=== PATIENT | male | born 1985 | race Caucasian/White ===

== ENCOUNTER 2021-04-29 20:26 | Emergency (ER) | payer OTHER ==
[2021-04-29 20:32] VITALS: BP 139/78; PULSE 89; TEMP 98.4; BMI 31.9
[2021-04-29] MEDS ORDERED: CLINDAMYCIN 600MG PREMIX IVPB 600 MG/50 ML BAG IVPB ONE ×2 (21:14→21:27)
[2021-04-29] MEDS ORDERED: KETOROLAC TROMETHAMINE 30 MG/1 ML VIAL IVPUSH ONE (21:14)
[2021-04-29] MEDS ORDERED: KETOROLAC TROMETHAMINE 30 MG/1 ML VIAL ONE (21:26)
== END 2021-04-29 22:28 | disposition home or self-care (01) ==
LOC: JERFT 20:26
PROC: 3E03329 Introduction of Other Anti-infective into Peripheral Vein, Percutaneous Approach (ICD-10-PCS; principal; 2021-04-29)
PROC: 3E0337Z Introduction of Electrolytic and Water Balance Substance into Peripheral Vein, Percutaneous Approach (ICD-10-PCS; 2021-04-29)
DX: S60.511A Abrasion of right hand, initial encounter (principal); L03.113 Cellulitis of right upper limb; W26.8XXA Contact with other sharp object(s), not elsewhere classified, initial encounter
CPT/HCPCS: 73130-TC-RT-FY; 99284-25

== ENCOUNTER 2021-06-14 21:10 | Emergency (ER) | payer OTHER ==
[2021-06-14 21:21] VITALS: BP 139/89; PULSE 92; TEMP 97.9; BMI 30.7
== END 2021-06-14 22:15 | disposition home or self-care (01) ==
LOC: JER 21:10
DX: J06.9 Acute upper respiratory infection, unspecified (principal); Z20.822 Contact with and (suspected) exposure to COVID-19
CPT/HCPCS: 71046-TC-FY; 99283-25

== ENCOUNTER 2021-11-30 18:00 | Emergency (ER) | payer OTHER ==
[2021-11-30 18:07] VITALS: BP 122/67; PULSE 102; TEMP 97; BMI 27.9
[2021-11-30] MEDS ORDERED: DEXAMETHASONE LIQUID 0.5 MG/5 ML PO ONE (18:51)
[2021-11-30] MEDS ORDERED: MAGNESIUM CITRATE 300 ML BOTTLE PO ONE (18:51)
[2021-11-30 19:11] LABS: BASO % 0.4 % (0-2.0); EOS % 9.9 % (0-4.5); HEMATOCRIT 50.6 % (35.4-49); HEMOGLOBIN 17.7 GM/dL (11.7-16.9); LYMPH % 37.2 % (8-40); MCH 33.7 pg (25.7-33.7); MEAN CELL VOLUME 96.4 fl (80-96); MEAN PLT VOLUME 7.2 fl (7.5-11.1); NEUT % 36.5 % (42.8-82.8); PLATELET COUNT 189 10^3/uL (134-434); RBC 5.25 M/mm3 (4.00-5.60); RDW 13.4 % (11.9-15.9); WHITE BLOOD COUNT 3.7 K/mm3 (4.0-10.0)
[2021-11-30] MEDS: ALBUTEROL SO4 2.5/IPRATROPIUM 0.5 INH SOL 3 ML VIAL.NEB. NEB SCH ×3 (19:30→20:05)
[2021-11-30 19:34] LABS: CALCIUM 8.8 mg/dL (8.5-10.1)
[2021-11-30 19:35] LABS: ALBUMIN 4.1 g/dl (3.4-5.0); BLOOD UREA NITROGEN 5.1 mg/dL (7-18)
[2021-11-30 19:38] LABS: CREATININE 0.9 mg/dL (0.55-1.3)
[2021-11-30 19:39] LABS: BILIRUBIN,TOTAL 0.5 mg/dL (0.2-1); TOT PROT 7.9 g/dl (6.4-8.2)
[2021-11-30] MEDS ORDERED: ALBUTEROL SO4 2.5/IPRATROPIUM 0.5 INH SOL 3 ML VIAL.NEB. NEB ONE (19:45)
[2021-11-30] MEDS ORDERED: MAGNESIUM CITRATE 300 ML BOTTLE ONE (19:45)
[2021-11-30] MEDS ORDERED: DEXAMETHASONE SOD PHOSPHATE 10 MG/1 ML VIAL ONE (19:45)
[2021-11-30] MEDS ORDERED: DEXAMETHASONE SOD PHOSPHATE 10 MG/1 ML VIAL IVPUSH ONE (20:43)
== END 2021-11-30 20:27 | disposition left against medical advice (07) ==
LOC: JER 18:00
PROC: 3E0F7GC Introduction of Other Therapeutic Substance into Respiratory Tract, Via Natural or Artificial Opening (ICD-10-PCS; principal; 2021-11-30)
PROC: 3E033GC Introduction of Other Therapeutic Substance into Peripheral Vein, Percutaneous Approach (ICD-10-PCS; 2021-11-30)
DX: J45.41 Moderate persistent asthma with (acute) exacerbation (principal); R74.01 Elevation of levels of liver transaminase levels
CPT/HCPCS: 36415; 71046-TC-FY; 74019-TC-FY; 80053; 83690; 85025; 99285-25

== ENCOUNTER 2021-12-01 10:10 | Emergency (ER) | payer OTHER ==
[2021-12-01] MEDS ORDERED: SODIUM CHLORIDE 0.9% 500 ML INFUS.BAG IV ONE (10:19)
[2021-12-01 10:34] VITALS: TEMP 97.4; BMI 27.3
[2021-12-01] MEDS ORDERED: DEXAMETHASONE SOD PHOSPHATE 10 MG/1 ML VIAL IVPUSH ONE (11:15)
[2021-12-01] MEDS ORDERED: ALBUTEROL SO4 2.5/IPRATROPIUM 0.5 INH SOL 3 ML VIAL.NEB. NEB SCH (11:15)
[2021-12-01] MEDS ORDERED: MAGNESIUM CITRATE 300 ML BOTTLE PO ONE (11:15)
[2021-12-01] MEDS ORDERED: DEXAMETHASONE SOD PHOSPHATE 10 MG/1 ML VIAL ONE (11:51)
[2021-12-01] MEDS ORDERED: ALBUTEROL SO4 2.5/IPRATROPIUM 0.5 INH SOL 3 ML VIAL.NEB. NEB ONE (11:51)
[2021-12-01 12:50] LABS: BASO % 0.3 % (0-2.0); HEMATOCRIT 48.2 % (35.4-49); HEMOGLOBIN 16.3 GM/dL (11.7-16.9); MCH 32.4 pg (25.7-33.7); MCHC 33.8 g/dl (32.0-35.9); MEAN CELL VOLUME 96.1 fl (80-96); MEAN PLT VOLUME 7.8 fl (7.5-11.1); MONO % 4.9 % (3.8-10.2); NEUT % 79.8 % (42.8-82.8); PLATELET COUNT 188 10^3/uL (134-434); RBC 5.02 M/mm3 (4.00-5.60); RDW 13.4 % (11.9-15.9)
[2021-12-01 13:04] LABS: ALBUMIN 3.9 g/dl (3.4-5.0); CALCIUM 9.4 mg/dL (8.5-10.1)
[2021-12-01 13:07] LABS: CREATININE 0.7 mg/dL (0.55-1.3)
[2021-12-01 13:09] LABS: BILIRUBIN,TOTAL 0.5 mg/dL (0.2-1)
[2021-12-01 13:50] VITALS: BP 132/82; PULSE 87
== END 2021-12-01 13:45 | disposition home or self-care (01) ==
LOC: JERFT 10:10
PROC: 3E0F7GC Introduction of Other Therapeutic Substance into Respiratory Tract, Via Natural or Artificial Opening (ICD-10-PCS; principal; 2021-12-01)
PROC: 3E033GC Introduction of Other Therapeutic Substance into Peripheral Vein, Percutaneous Approach (ICD-10-PCS; 2021-12-01)
DX: R74.01 Elevation of levels of liver transaminase levels (principal); R06.2 Wheezing; K59.00 Constipation, unspecified
CPT/HCPCS: 36415; 76705-TC; 80053; 83690; 85025; 99284-25; J1100

== ENCOUNTER 2022-01-07 02:15 | Emergency (ER) | payer OTHER ==
[2022-01-07 02:23] VITALS: TEMP 97.6; BMI 26.9
[2022-01-07] MEDS ORDERED: ASPIRIN 81 MG CHEWABLE TABLETS PO ONE (04:33)
[2022-01-07] MEDS ORDERED: LIDOCAINE 5% TOPICAL PATCH TP ONE (04:34)
[2022-01-07] MEDS ORDERED: LIDOCAINE 5% TOPICAL PATCH ONE (04:47)
[2022-01-07] MEDS ORDERED: ASPIRIN 81 MG CHEWABLE TABLETS ONE (04:47)
[2022-01-07 05:08] LABS: BASO % 0.5 % (0-2.0); EOS % 7.8 % (0-4.5); HEMATOCRIT 45.5 % (35.4-49); HEMOGLOBIN 15.5 GM/dL (11.7-16.9); LYMPH % 41.5 % (8-40); MCH 33.1 pg (25.7-33.7); MEAN CELL VOLUME 97.3 fl (80-96); MONO % 10.3 % (3.8-10.2); NEUT % 39.9 % (42.8-82.8); PLATELET COUNT 230 10^3/uL (134-434); RBC 4.68 M/mm3 (4.00-5.60); WHITE BLOOD COUNT 3.1 K/mm3 (4.0-10.0)
[2022-01-07 05:29] LABS: ALBUMIN 3.6 g/dl (3.4-5.0); BLOOD UREA NITROGEN 4.5 mg/dL (7-18); CALCIUM 8.5 mg/dL (8.5-10.1)
[2022-01-07 05:32] LABS: CREATININE 0.7 mg/dL (0.55-1.3)
[2022-01-07 05:34] LABS: BILIRUBIN,TOTAL 0.6 mg/dL (0.2-1)
[2022-01-07 06:51] VITALS: BP 115/77; PULSE 74; RESP 18
[2022-01-07] MEDS ORDERED: LIDOCAINE PATCH REMOVAL MC SCH (22:00)
== END 2022-01-07 07:59 | disposition home or self-care (01) ==
LOC: JER 02:15
DX: F10.129 Alcohol abuse with intoxication, unspecified (principal); K70.10 Alcoholic hepatitis without ascites
CPT/HCPCS: 36415; 71045-TC-FY; 80053; 80307; 83690; 85025; 93005; 93010; 99285-25

== ENCOUNTER 2022-04-14 18:24 | Inpatient (IN) | payer OTHER ==
[2022-04-14 18:45] VITALS: BMI 27.3
[2022-04-14] MEDS ORDERED: METOCLOPRAMIDE HCL INJECTION 10 MG/2 ML VIAL IVPUSH ONE (19:39)
[2022-04-14] MEDS ORDERED: FAMOTIDINE 20 MG/50 ML IVPB 20 MG/50 ML MG IVPB ONE ×2 (19:43→19:46)
[2022-04-14] MEDS ORDERED: SODIUM CHLORIDE 0.9% 500 ML INFUS.BAG IV ONE (19:43)
[2022-04-14] MEDS ORDERED: METOCLOPRAMIDE HCL INJECTION 10 MG/2 ML VIAL ONE (19:45)
[2022-04-14 20:15] LABS: BASO % 1.9 % (0-2.0); EOS % 0.8 % (0-4.5); HEMATOCRIT 47.8 % (35.4-49); HEMOGLOBIN 16.7 GM/dL (11.7-16.9); LYMPH % 13.7 % (8-40); MCH 33.5 pg (25.7-33.7); MCHC 34.9 g/dl (32.0-35.9); MEAN CELL VOLUME 95.9 fl (80-96); MEAN PLT VOLUME 7.4 fl (7.5-11.1); MONO % 9.5 % (3.8-10.2); NEUT % 74.1 % (42.8-82.8); PLATELET COUNT 208 10^3/uL (134-434); RBC 4.99 M/mm3 (4.00-5.60); RDW 12.6 % (11.9-15.9); WHITE BLOOD COUNT 4.7 K/mm3 (4.0-10.0)
[2022-04-14 20:22] LABS: INR 1.03 (0.83-1.09); PROTHROMBIN TIME (PATIENT) 11.8 SEC (9.7-13.0)
[2022-04-14 20:24] LABS: ACTIVATED PTT 30.2 SECONDS (25.2-36.5)
[2022-04-14] MEDS ORDERED: morphine CARPU-JECT 2 MG/1 ML DISP.SYRIN IVPUSH ONE (20:25)
[2022-04-14] MEDS ORDERED: diazePAM CARPU-JECT 10 MG/2 ML DISP.SYRIN IVPUSH ONE (20:38)
[2022-04-14 20:40] LABS: CALCIUM 9.1 mg/dL (8.5-10.1)
[2022-04-14 20:41] LABS: BLOOD UREA NITROGEN 4.9 mg/dL (7-18)
[2022-04-14 20:44] LABS: CREATININE 0.7 mg/dL (0.55-1.3)
[2022-04-14 20:45] LABS: BILIRUBIN,TOTAL 2.1 mg/dL (0.2-1); TOT PROT 7.5 g/dl (6.4-8.2)
[2022-04-14] MEDS ORDERED: morphine SULFATE 4 MG/ML VIAL ONE (20:45)
[2022-04-14] MEDS ORDERED: diazePAM CARPU-JECT 10 MG/2 ML DISP.SYRIN ONE (20:45)
[2022-04-14] MEDS ORDERED: ONDANSETRON 4 MG/2 ML VIAL IVPUSH ONE (21:00)
[2022-04-14] MEDS ORDERED: ONDANSETRON 4 MG/2 ML VIAL ONE (21:02)
[2022-04-14 21:09] LABS: LACTIC ACID 2.2 mmol/L (0.4-2.0)
[2022-04-14] MEDS ORDERED: LACTATED RINGERS SOLUTION 1,000 ML IV STA (21:40)
[2022-04-14] MEDS ORDERED: HYDROmorphone HCL CARPU-JECT 2 MG/1 ML DISP.SYRIN IVPUSH ONE (23:12)
[2022-04-14] MEDS ORDERED: HYDROmorphone HCl 2 MG/ML VIAL ONE (23:26)
[2022-04-15] MEDS ORDERED: FOLIC ACID INJECTION - 1 MG, THIAMINE HCL 100 MG, MULTIVIT INJECTION ADULT 10 ML in SOD... IVPB ONE (00:27)
[2022-04-15] MEDS ORDERED: HEPARIN NA (PORCINE) 5,000 UNITS/ML 1ML VIAL SQ ONE (00:31)
[2022-04-15] MEDS ORDERED: LACTATED RINGERS SOLUTION 1,000 ML IV SCH (00:45)
[2022-04-15] MEDS ORDERED: LORazepam 1 MG TABLET PO PRN ×2 (00:45→14:54)
[2022-04-15 01:10] LABS: MAGNESIUM 1.1 mg/dL (1.8-2.4)
[2022-04-15 01:14] LABS: PHOSPHOROUS 2.9 mg/dL (2.5-4.9)
[2022-04-15 01:21] VITALS: RESP 20
[2022-04-15] MEDS ORDERED: POTASSIUM PHOSPHATE 15 MM in SODIUM CHLORIDE 250 ML IVPB ONE (01:35)
[2022-04-15] MEDS ORDERED: POTASSIUM CHLORIDE TABS 20 MEQ TABLET.ER (FP) PO ONE (01:35)
[2022-04-15] MEDS ORDERED: POTASSIUM CHLORIDE TABS 10 MEQ TABLET.ER (FP) ONE (01:44)
[2022-04-15] MEDS ORDERED: MAGNESIUM 2GM/50ML STERILE WATER IVPB IVPB ONE (01:45)
[2022-04-15] MEDS ORDERED: LORazepam 1 MG TABLET ONE ×2 (01:45→10:03)
[2022-04-15] MEDS ORDERED: HEPARIN NA (PORCINE) 5,000 UNITS/ML 1ML VIAL ONE (01:45)
[2022-04-15] MEDS ORDERED: MAGNESIUM SULFATE IN WATER 2 GM/50 ML IVPB IVPB ONE (01:45)
[2022-04-15] MEDS ORDERED: LORazepam 2 MG/ML SDV VIAL IVPUSH PRN (02:10)
[2022-04-15] MEDS ORDERED: HYDROmorphone HCl 2 MG/ML VIAL IVPUSH PRN ×3 (02:13→14:54)
[2022-04-15] MEDS: LORazepam 2 MG TABLET PO SCH ×4 (02:21→17:29)
[2022-04-15] MEDS ORDERED: HYDROmorphone HCl 2 MG/ML VIAL ONE ×2 (02:25→13:20)
[2022-04-15] MEDS: LORazepam 2 MG/ML SDV VIAL IVPUSH PRN ×3 (02:32→16:14)
[2022-04-15] MEDS: INSULIN SLIDING SCALE (NOVOLOG) 1 VIAL SQ SCH ×3 (06:13→16:38)
[2022-04-15 07:33] LABS: BASO % 0.4 % (0-2.0); EOS % 0.8 % (0-4.5); HEMATOCRIT 45.5 % (35.4-49); HEMOGLOBIN 15.6 GM/dL (11.7-16.9); LYMPH % 9.2 % (8-40); MCH 33.4 pg (25.7-33.7); MCHC 34.3 g/dl (32.0-35.9); MEAN CELL VOLUME 97.2 fl (80-96); MONO % 7.7 % (3.8-10.2); NEUT % 81.9 % (42.8-82.8); PLATELET COUNT 207 10^3/uL (134-434); RBC 4.68 M/mm3 (4.00-5.60); RDW 12.9 % (11.9-15.9); WHITE BLOOD COUNT 5.9 K/mm3 (4.0-10.0)
[2022-04-15 07:45] LABS: CHOLESTEROL 208 mg/dL (50-200); TRIGLYCERIDES 84 mg/dL (0-150)
[2022-04-15 07:46] LABS: LDL CHOLESTEROL (ONLY SJRH) 85 mg/dL (5-100)
[2022-04-15 07:47] LABS: CALCIUM 8.8 mg/dL (8.5-10.1)
[2022-04-15 07:48] LABS: ALBUMIN 3.5 g/dl (3.4-5.0); BLOOD UREA NITROGEN 3.5 mg/dL (7-18); HDL CHOLESTEROL 96 mg/dL (40-60); MAGNESIUM 1.9 mg/dL (1.8-2.4)
[2022-04-15 07:50] LABS: CREATININE 0.6 mg/dL (0.55-1.3)
[2022-04-15 07:51] LABS: PHOSPHOROUS 3.4 mg/dL (2.5-4.9)
[2022-04-15 07:52] LABS: BILIRUBIN,TOTAL 2.1 mg/dL (0.2-1); TOT PROT 6.6 g/dl (6.4-8.2)
[2022-04-15 08:23] LABS: INR 0.97 (0.83-1.09); PROTHROMBIN TIME (PATIENT) 11.2 SEC (9.7-13.0)
[2022-04-15] MEDS ORDERED: FOLIC ACID 1 MG TABLET (FP) PO ONE (10:00)
[2022-04-15] MEDS ORDERED: THIAMINE HCL 200 MG/2 ML VIAL IVPB SCH ×2 (10:00)
[2022-04-15] MEDS ORDERED: FOLIC ACID 1 MG TABLET (FP) ONE (10:16)
[2022-04-15] MEDS ORDERED: THIAMINE HCL 200 MG/2 ML VIAL ONE (10:56)
[2022-04-15 17:26] VITALS: BP 166/118; PULSE 108; TEMP 98.4
[2022-04-16] MEDS ORDERED: LORazepam 1 MG TABLET PO SCH (05:00)
[2022-04-17] MEDS ORDERED: LORazepam 0.5 MG TABLET PO PRN
[2022-04-17] MEDS ORDERED: LORazepam 0.5 MG TABLET PO SCH (05:00)
[2022-04-18] MEDS ORDERED: LORazepam 0.5 MG TABLET PO ONE (05:00)
== END 2022-04-15 20:06 | disposition left against medical advice (07) | DRG 282 ==
LOC: JER 18:24 → JERBED 21:12
PROVIDERS: ADMIT Internal Medicine; ATTEND Internal Medicine
DX: K85.20 Alcohol induced acute pancreatitis without necrosis or infection (principal); J45.909 Unspecified asthma, uncomplicated; E87.20 Acidosis, unspecified; K76.0 Fatty (change of) liver, not elsewhere classified; R00.0 Tachycardia, unspecified; F10.230 Alcohol dependence with withdrawal, uncomplicated; K70.10 Alcoholic hepatitis without ascites
CPT/HCPCS: 0241U-QW; 36415; 71046-TC-FY; 74177-TC; 76705-TC; 80053; 80061; 82962; 83036; 83605; 83690; 83735; 84100; 84443; 84484; 85025; 85610; 85730; 86850; 86900; 86901; 93005; 93010; 99285-25; J1644; Q9967

== ENCOUNTER 2022-06-15 06:15 | Inpatient (IN) | payer OTHER ==
[2022-06-15] MEDS ORDERED: morphine SULFATE 4 MG/ML VIAL ONE (07:37)
[2022-06-15] MEDS ORDERED: ONDANSETRON 4 MG/2 ML VIAL ONE ×2 (07:47→21:48)
[2022-06-15] MEDS ORDERED: morphine CARPU-JECT 4 MG/1 ML DISP.SYRIN IVPUSH ONE (07:57)
[2022-06-15] MEDS ORDERED: ONDANSETRON 4 MG/2 ML VIAL IVPUSH ONE ×2 (07:58→21:44)
[2022-06-15] MEDS ORDERED: LACTATED RINGERS SOLUTION 1000 ML INFUS.BAG IV ONE (07:58)
[2022-06-15 08:25] LABS: BASO % 1.2 % (0-2.0); EOS % 0.3 % (0-4.5); HEMATOCRIT 55.3 % (35.4-49); HEMOGLOBIN 19.6 GM/dL (11.7-16.9); LYMPH % 9.6 % (8-40); MCH 33.3 pg (25.7-33.7); MCHC 35.4 g/dl (32.0-35.9); MEAN CELL VOLUME 94.1 fl (80-96); MEAN PLT VOLUME 8.5 fl (7.5-11.1); MONO % 9.7 % (3.8-10.2); NEUT % 79.2 % (42.8-82.8); PLATELET COUNT 193 10^3/uL (134-434); RBC 5.87 M/mm3 (4.00-5.60); RDW 18.3 % (11.9-15.9); WHITE BLOOD COUNT 7.2 K/mm3 (4.0-10.0)
[2022-06-15] MEDS ORDERED: HYDROmorphone HCL CARPU-JECT 2 MG/1 ML DISP.SYRIN IVPUSH ONE ×3 (08:28→11:38)
[2022-06-15] MEDS ORDERED: HYDROmorphone HCl 2 MG/ML VIAL ONE ×5 (08:29→18:06)
[2022-06-15 08:40] LABS: CHLORIDE 94 mmol/L (98-107)
[2022-06-15 08:42] LABS: CALCIUM 9.2 mg/dL (8.5-10.1); GLUCOSE,RANDOM 63 mg/dL (74-106)
[2022-06-15 08:43] LABS: ALBUMIN 3.2 g/dl (3.4-5.0); BLOOD UREA NITROGEN 6.5 mg/dL (7-18); MAGNESIUM 2.3 mg/dL (1.8-2.4)
[2022-06-15 08:45] LABS: PHOSPHOROUS 6.8 mg/dL (2.5-4.9)
[2022-06-15] MEDS ORDERED: DEXTROSE 50%-WATER - 25 GM/50 ML VIAL IVPUSH ONE (08:45)
[2022-06-15 08:46] LABS: CREATININE 1.2 mg/dL (0.55-1.3)
[2022-06-15 08:47] LABS: TOT PROT 10.8 g/dl (6.4-8.2)
[2022-06-15] MEDS ORDERED: DEXTROSE 50%-WATER 25 GM/50 ML DISP.SYRIN ONE (08:50)
[2022-06-15 09:11] LABS: SODIUM 113 mmol/L (136-145)
[2022-06-15 09:38] LABS: EPI CELLS 8 /uL (0-25.1); HYALINE CASTS 6 /uL (0-3.1); PH,URINE 5.5 (5.0-8.0); URINE APPEARANCE CLEAR; URINE BACTERIA 51 /uL (0-1359); URINE BILIRUBIN NEGATIVE (NEGATIVE); URINE COLOR YELLOW; URINE GLUCOSE (UA) 3+ (NEGATIVE); URINE KETONE 4+ (NEGATIVE); URINE LEUK ESTERASE NEGATIVE (NEGATIVE); URINE NITRITE NEGATIVE (NEGATIVE); URINE PROTEIN 2+ (NEGATIVE); URINE RBC 13 /uL (0-23.9); URINE WBC 7 /uL (0-25.8)
[2022-06-15 10:49] LABS: ALBUMIN 3.6 g/dl (3.4-5.0); BLOOD UREA NITROGEN 5.9 mg/dL (7-18)
[2022-06-15 10:51] LABS: CREATININE 0.9 mg/dL (0.55-1.3)
[2022-06-15 10:53] LABS: BILIRUBIN,TOTAL 1.9 mg/dL (0.2-1)
[2022-06-15 11:41] LABS: VENOUS BASE EXCESS -5.7 mmol/L (-2-2); VENOUS O2 SATURATION 75.2 % (70-80); VENOUS PCO2 45.4 mmHg (38-52); VENOUS PH 7.284 (7.310-7.410)
[2022-06-15] MEDS ORDERED: SODIUM CHLORIDE 0.9% 500 ML INFUS.BAG IV ONE (11:41)
[2022-06-15 12:14] LABS: BILIRUBIN,DIRECT 0.9 mg/dL (0.0-0.2)
[2022-06-15] MEDS ORDERED: HYDROmorphone HCl 2 MG/ML VIAL IVPUSH ONE (15:22)
[2022-06-15] MEDS ORDERED: HYDROmorphone HCL CARPU-JECT 2 MG/1 ML DISP.SYRIN IVPUSH SCH (15:45)
[2022-06-15] MEDS: LACTATED RINGERS SOLUTION 1,000 ML IV SCH ×2 (16:02→23:33)
[2022-06-15] MEDS ORDERED: HYDROmorphone HCl 2 MG/ML VIAL IVPUSH PRN ×2 (17:38→19:45)
[2022-06-15] MEDS ORDERED: HYDROmorphone HCl 2 MG/ML VIAL IVPB PRN (23:07)
[2022-06-16 00:30] VITALS: BMI 26.4
[2022-06-16] MEDS ORDERED: LACTATED RINGERS SOLUTION 1,000 ML/1,000 ML INFUS.BAG IV SCH ×3 (09:30→10:52)
[2022-06-16] MEDS ORDERED: ENOXAPARIN NA (PORCINE) 40 MG/0.4 ML DISP.SYRIN SQ SCH (10:00)
[2022-06-16] MEDS ORDERED: LORazepam 2 MG/ML SDV VIAL IVPUSH ONE (10:45)
[2022-06-16 10:56] VITALS: BP 167/114; PULSE 113; RESP 24; TEMP 97.6
[2022-06-16 12:05] LABS: ALBUMIN 3.3 g/dl (3.4-5.0); CALCIUM 9.3 mg/dL (8.5-10.1); MAGNESIUM 1.8 mg/dL (1.8-2.4)
[2022-06-16 12:07] LABS: BLOOD UREA NITROGEN 3.2 mg/dL (7-18)
[2022-06-16 12:08] LABS: CREATININE 0.7 mg/dL (0.55-1.3)
[2022-06-16 12:09] LABS: BILIRUBIN,TOTAL 2.1 mg/dL (0.2-1)
[2022-06-16 12:12] LABS: TOT PROT 6.6 g/dl (6.4-8.2)
[2022-06-16] MEDS ORDERED: MAGNESIUM 1GM/D5W 100ML - 100 ML IVPB IVPB ONE (13:00)
[2022-06-16 15:00] LABS: BASO % 0.6 % (0-2.0); EOS % 0.7 % (0-4.5); HEMATOCRIT 56.4 % (35.4-49); HEMOGLOBIN 18.8 GM/dL (11.7-16.9); LYMPH % 8.9 % (8-40); MCHC 33.3 g/dl (32.0-35.9); MEAN CELL VOLUME 99.2 fl (80-96); MEAN PLT VOLUME 8.2 fl (7.5-11.1); MONO % 9.9 % (3.8-10.2); NEUT % 79.9 % (42.8-82.8); PLATELET COUNT 157 10^3/uL (134-434); RBC 5.69 M/mm3 (4.00-5.60); RDW 16.1 % (11.9-15.9); WHITE BLOOD COUNT 8.5 K/mm3 (4.0-10.0)
[2022-06-16] MEDS ORDERED: SODIUM PHOSPHATE - 30 MM in SODIUM CHLORIDE 500 ML IVPB ONE (16:00)
== END 2022-06-16 16:46 | disposition left against medical advice (07) | DRG 282 ==
LOC: JER 06:15 → JERBED 11:41 → J5S 21:43
PROVIDERS: ADMIT Internal Medicine; ATTEND Internal Medicine
DX: K85.20 Alcohol induced acute pancreatitis without necrosis or infection (principal); E87.20 Acidosis, unspecified; K70.0 Alcoholic fatty liver; D18.00 Hemangioma unspecified site; F10.10 Alcohol abuse, uncomplicated; R74.01 Elevation of levels of liver transaminase levels
CPT/HCPCS: 0241U-QW; 36415; 71046-TC-FY; 74177-TC; 76705-TC; 80053; 80307; 81003; 82010; 82248; 82570; 82803; 83036; 83605; 83690; 83735; 84100; 84156; 84478; 85025; 86850; 86900; 86901; 93005; 93010; 99285-25; Q9967

== ENCOUNTER 2022-06-19 11:37 | Emergency (ER) | payer OTHER ==
[2022-06-19 11:55] VITALS: BP 130/93; PULSE 80; RESP 17; TEMP 98.1; BMI 26.4
[2022-06-19 13:19] LABS: BASO % 1.3 % (0-2.0); EOS % 2.9 % (0-4.5); HEMATOCRIT 55.9 % (35.4-49); HEMOGLOBIN 18.9 GM/dL (11.7-16.9); LYMPH % 20.1 % (8-40); MCH 33.3 pg (25.7-33.7); MCHC 33.9 g/dl (32.0-35.9); MEAN CELL VOLUME 98.2 fl (80-96); MEAN PLT VOLUME 7.5 fl (7.5-11.1); MONO % 12.8 % (3.8-10.2); NEUT % 62.9 % (42.8-82.8); PLATELET COUNT 230 10^3/uL (134-434); RBC 5.69 M/mm3 (4.00-5.60); RDW 16.7 % (11.9-15.9); WHITE BLOOD COUNT 5.5 K/mm3 (4.0-10.0)
[2022-06-19 13:33] LABS: ALBUMIN 3.4 g/dl (3.4-5.0); BLOOD UREA NITROGEN 5.1 mg/dL (7-18); CALCIUM 9.4 mg/dL (8.5-10.1)
[2022-06-19 13:36] LABS: CREATININE 0.7 mg/dL (0.55-1.3)
[2022-06-19 13:38] LABS: BILIRUBIN,TOTAL 0.8 mg/dL (0.2-1)
== END 2022-06-19 14:15 | disposition home or self-care (01) ==
LOC: JERFT 11:37
DX: Z01.89 Encounter for other specified special examinations (principal)
CPT/HCPCS: 36415; 80053; 83690; 85025; 99283-25

== ENCOUNTER 2022-09-07 06:07 | Inpatient (IN) | payer OTHER ==
[2022-09-07] MEDS ORDERED: morphine CARPU-JECT 4 MG/1 ML DISP.SYRIN IVPUSH ONE ×2 (07:38→09:14)
[2022-09-07] MEDS ORDERED: ONDANSETRON 4 MG/2 ML VIAL IVPUSH ONE (07:39)
[2022-09-07] MEDS ORDERED: SODIUM CHLORIDE 0.9% 1000 ML INFUS.BAG IV ONE (07:39)
[2022-09-07 07:54] LABS: BASO % 0.9 % (0-2.0); HEMATOCRIT 46.2 % (35.4-49); HEMOGLOBIN 16.3 GM/dL (11.7-16.9); LYMPH % 19.2 % (8-40); MCH 32.9 pg (25.7-33.7); MCHC 35.2 g/dl (32.0-35.9); MEAN CELL VOLUME 93.6 fl (80-96); MONO % 7.6 % (3.8-10.2); NEUT % 66.3 % (42.8-82.8); PLATELET COUNT 199 10^3/uL (134-434); RBC 4.94 M/mm3 (4.00-5.60); RDW 13.9 % (11.9-15.9); WHITE BLOOD COUNT 5.1 K/mm3 (4.0-10.0)
[2022-09-07] MEDS ORDERED: morphine SULFATE 4 MG/ML VIAL ONE ×2 (08:01→10:17)
[2022-09-07] MEDS ORDERED: ONDANSETRON 4 MG/2 ML VIAL ONE (08:01)
[2022-09-07 08:16] LABS: CHLORIDE 99 mmol/L (98-107); SODIUM 134 mmol/L (136-145)
[2022-09-07 08:18] LABS: CALCIUM 9.6 mg/dL (8.5-10.1)
[2022-09-07 08:19] LABS: ALBUMIN 4.1 g/dl (3.4-5.0); ANION GAP 5 MMOL/L (8-16); BLOOD UREA NITROGEN 10.3 mg/dL (7-18); CO2 30 mmol/L (21-32); GLUCOSE,RANDOM 126 mg/dL (74-106); MAGNESIUM 1.7 mg/dL (1.8-2.4)
[2022-09-07 08:22] LABS: CREATININE 0.7 mg/dL (0.55-1.3); SGOT/AST 59 U/L (15-37); SGPT/ALT 49 U/L (13-61)
[2022-09-07 08:23] LABS: BILIRUBIN,TOTAL 1.9 mg/dL (0.2-1); TOT PROT 7.7 g/dl (6.4-8.2)
[2022-09-07 08:25] LABS: ALK PHOS 156 U/L (45-117)
[2022-09-07 08:26] LABS: LIPASE 3046 U/L (73-393)
[2022-09-07] MEDS ORDERED: SODIUM CHLORIDE 0.9% 500 ML INFUS.BAG IV ONE (09:13)
[2022-09-07] MEDS ORDERED: LACTATED RINGERS SOLUTION 1,000 ML IV SCH (09:30)
[2022-09-07] MEDS ORDERED: ACETAMINOPHEN 325 MG TABLET (FP) PO PRN (09:55)
[2022-09-07] MEDS ORDERED: ENOXAPARIN NA (PORCINE) 40 MG/0.4 ML DISP.SYRIN SQ ONE (10:17)
[2022-09-07] MEDS ORDERED: MAGNESIUM SULF 50% (8.12 MEQ/2 ML-1 GM VIAL) IVPB ONE (10:19)
[2022-09-07] MEDS: ENOXAPARIN NA (PORCINE) 40 MG/0.4 ML DISP.SYRIN SQ SCH (10:30)
[2022-09-07] MEDS: LORazepam 2 MG/ML SDV VIAL IVPUSH PRN ×2 (10:30→17:00)
[2022-09-07] MEDS ORDERED: MAGNESIUM 1GM/D5W - 1 GM/100 ML IVPB IVPB ONE (11:57)
[2022-09-07 11:58] LABS: PHOSPHOROUS 2.9 mg/dL (2.5-4.9)
[2022-09-07] MEDS ORDERED: HYDROmorphone HCl 2 MG/ML VIAL IVPB ONE (21:30)
[2022-09-07] MEDS ORDERED: HYDROmorphone HCl 2 MG/ML VIAL ONE (21:39)
[2022-09-08] MEDS: LORazepam 2 MG/ML SDV VIAL IVPUSH PRN ×2 (01:43→08:25)
[2022-09-08] MEDS ORDERED: morphine SULFATE IMMEDIATE RELEASE 30 MG TAB PO PRN (08:15)
[2022-09-08] MEDS: KETOROLAC TROMETHAMINE 30 MG/1 ML VIAL IVPUSH SCH ×3 (08:24→17:43)
[2022-09-08 08:55] LABS: HEMATOCRIT 44.8 % (35.4-49); MCH 33.4 pg (25.7-33.7); MCHC 35.7 g/dl (32.0-35.9); MEAN CELL VOLUME 93.6 fl (80-96); MEAN PLT VOLUME 7.8 fl (7.5-11.1); PLATELET COUNT 184 10^3/uL (134-434); RBC 4.79 M/mm3 (4.00-5.60); RDW 13.7 % (11.9-15.9); WHITE BLOOD COUNT 6.7 K/mm3 (4.0-10.0)
[2022-09-08 09:00] LABS: EPI CELLS 3 /uL (0-25.1); HYALINE CASTS 1 /uL (0-3.1); PH,URINE 5.5 (5.0-8.0); URINE APPEARANCE CLEAR; URINE BACTERIA 8 /uL (0-1359); URINE BILIRUBIN NEGATIVE (NEGATIVE); URINE COLOR YELLOW; URINE GLUCOSE (UA) TRACE (NEGATIVE); URINE KETONE 4+ (NEGATIVE); URINE LEUK ESTERASE NEGATIVE (NEGATIVE); URINE NITRITE NEGATIVE (NEGATIVE); URINE PROTEIN 2+ (NEGATIVE); URINE RBC 4 /uL (0-23.9); URINE WBC 6 /uL (0-25.8)
[2022-09-08 09:32] LABS: CALCIUM 9.6 mg/dL (8.5-10.1)
[2022-09-08 09:33] LABS: ALBUMIN 4.1 g/dl (3.4-5.0); BLOOD UREA NITROGEN 5.7 mg/dL (7-18)
[2022-09-08 09:34] LABS: CREATININE 0.5 mg/dL (0.55-1.3)
[2022-09-08 09:35] LABS: BILIRUBIN,TOTAL 1.1 mg/dL (0.2-1); TOT PROT 7.7 g/dl (6.4-8.2)
[2022-09-08] MEDS: ENOXAPARIN NA (PORCINE) 40 MG/0.4 ML DISP.SYRIN SQ SCH (10:51)
[2022-09-08] MEDS: SODIUM CHLORIDE 1,000 ML IV SCH ×2 (12:06→23:54)
[2022-09-08] MEDS: ACETAMINOPHEN 325 MG TABLET (FP) PO SCH ×3 (13:22→23:55)
[2022-09-08 14:25] VITALS: RESP 18
[2022-09-09] MEDS: KETOROLAC TROMETHAMINE 30 MG/1 ML VIAL IVPUSH SCH (01:45)
[2022-09-09] MEDS: ACETAMINOPHEN 325 MG TABLET (FP) PO SCH (06:12)
[2022-09-09] MEDS ORDERED: KETOROLAC TROMETHAMINE 30 MG/1 ML VIAL IVPUSH PRN (07:51)
[2022-09-09] MEDS: SODIUM CHLORIDE 1,000 ML IV SCH (08:42)
[2022-09-09 09:00] LABS: BASO % 0.8 % (0-2.0); EOS % 8.2 % (0-4.5); HEMATOCRIT 41.9 % (35.4-49); HEMOGLOBIN 14.9 GM/dL (11.7-16.9); LYMPH % 26.5 % (8-40); MCH 33.4 pg (25.7-33.7); MCHC 35.6 g/dl (32.0-35.9); MEAN CELL VOLUME 93.7 fl (80-96); MEAN PLT VOLUME 7.4 fl (7.5-11.1); MONO % 11.5 % (3.8-10.2); PLATELET COUNT 198 10^3/uL (134-434); RBC 4.47 M/mm3 (4.00-5.60); RDW 13.5 % (11.9-15.9); WHITE BLOOD COUNT 4.4 K/mm3 (4.0-10.0)
[2022-09-09] MEDS: ENOXAPARIN NA (PORCINE) 40 MG/0.4 ML DISP.SYRIN SQ SCH (09:02)
[2022-09-09 09:32] LABS: CALCIUM 8.8 mg/dL (8.5-10.1)
[2022-09-09 09:33] LABS: ALBUMIN 3.5 g/dl (3.4-5.0); BLOOD UREA NITROGEN 6.3 mg/dL (7-18); MAGNESIUM 1.7 mg/dL (1.8-2.4)
[2022-09-09 09:36] LABS: CREATININE 0.6 mg/dL (0.55-1.3); PHOSPHOROUS 3.4 mg/dL (2.5-4.9)
[2022-09-09 09:37] LABS: BILIRUBIN,TOTAL 1.3 mg/dL (0.2-1)
[2022-09-09 09:38] LABS: TOT PROT 6.8 g/dl (6.4-8.2)
[2022-09-09 11:11] VITALS: BP 144/96; PULSE 73; TEMP 98.1
[2022-09-09 12:17] VITALS: BMI 26.4
== END 2022-09-09 13:38 | disposition home or self-care (01) | DRG 282 ==
LOC: JER 06:07 → JERBED 08:34 → J7W 21:54
PROVIDERS: ADMIT Internal Medicine; ATTEND Internal Medicine
DX: K85.20 Alcohol induced acute pancreatitis without necrosis or infection (principal); E83.42 Hypomagnesemia; K70.0 Alcoholic fatty liver; F17.210 Nicotine dependence, cigarettes, uncomplicated; R11.2 Nausea with vomiting, unspecified
CPT/HCPCS: 0241U-QW; 36415; 74177-TC; 80053; 80307; 81003; 83690; 83735; 84100; 85025; 85027; 93005; 93010; 99285-25

== ENCOUNTER 2022-11-25 10:09 | Inpatient (IN) | payer OTHER ==
[2022-11-25 10:15] VITALS: BMI 25.9
[2022-11-25] MEDS ORDERED: SODIUM CHLORIDE 0.9% 500 ML INFUS.BAG IV ONE ×2 (10:52→12:39)
[2022-11-25] MEDS ORDERED: ONDANSETRON 4 MG/2 ML VIAL IVPUSH ONE (10:53)
[2022-11-25] MEDS ORDERED: morphine CARPU-JECT 4 MG/1 ML DISP.SYRIN IVPUSH ONE (10:54)
[2022-11-25] MEDS ORDERED: morphine SULFATE 4 MG/ML VIAL ONE (11:06)
[2022-11-25] MEDS ORDERED: ONDANSETRON 4 MG/2 ML VIAL ONE ×2 (11:06→17:22)
[2022-11-25 11:44] LABS: BASO % 0.5 % (0-2.0); EOS % 0.2 % (0-4.5); HEMATOCRIT 48.6 % (35.4-49); LYMPH % 8.6 % (8-40); MEAN CELL VOLUME 94.3 fl (80-96); MEAN PLT VOLUME 7.2 fl (7.5-11.1); MONO % 7.9 % (3.8-10.2); NEUT % 82.8 % (42.8-82.8); PLATELET COUNT 209 10^3/uL (134-434); RBC 5.16 M/mm3 (4.00-5.60); RDW 12.4 % (11.9-15.9); WHITE BLOOD COUNT 9.1 K/mm3 (4.0-10.0)
[2022-11-25 12:16] LABS: POTASSIUM 5.4 mmol/L (3.5-5.1)
[2022-11-25 12:19] LABS: BLOOD UREA NITROGEN 7.4 mg/dL (7-18)
[2022-11-25 12:21] LABS: BILIRUBIN,DIRECT 0.1 mg/dL (0.0-0.2)
[2022-11-25 12:22] LABS: CREATININE 0.8 mg/dL (0.55-1.3)
[2022-11-25 12:23] LABS: BILIRUBIN,TOTAL 0.8 mg/dL (0.2-1)
[2022-11-25 12:27] LABS: ALBUMIN 4.3 g/dl (3.4-5.0); CALCIUM 10.4 mg/dL (8.5-10.1); TOT PROT 8.6 g/dl (6.4-8.2)
[2022-11-25] MEDS ORDERED: ONDANSETRON 4 MG/2 ML VIAL IVPUSH PRN (14:08)
[2022-11-25] MEDS ORDERED: ACETAMINOPHEN 500 MG TABLET (FP) PO PRN (14:11)
[2022-11-25] MEDS ORDERED: LORazepam 2 MG TABLET PO PRN (14:11)
[2022-11-25] MEDS: SODIUM CHLORIDE 1,000 ML IV SCH (14:45)
[2022-11-25] MEDS ORDERED: LORazepam 0.5 MG TABLET ONE (16:50)
[2022-11-25] MEDS ORDERED: ACETAMINOPHEN 325 MG TABLET (FP) ONE (16:50)
[2022-11-25] MEDS ORDERED: LABETALOL HCL 5 MG/1 ML (100MG/20 ML VIAL) IVPUSH ONE (17:43)
[2022-11-25] MEDS ORDERED: LABETALOL HCL 20 MG/4 ML VIAL ONE (17:49)
[2022-11-25] MEDS ORDERED: HYDROmorphone HCl 2 MG/ML VIAL IVPUSH ONE (20:59)
[2022-11-25] MEDS: PANTOPRAZOLE 40 MG TABLET PO SCH (22:26)
[2022-11-25] MEDS: BACLOFEN 10 MG TABLET (FP) PO SCH (22:26)
[2022-11-26] MEDS: SODIUM CHLORIDE 1,000 ML IV SCH (01:06)
[2022-11-26] MEDS: BACLOFEN 10 MG TABLET (FP) PO SCH (05:33)
[2022-11-26 09:31] LABS: BASO % 0.9 % (0-2.0); EOS % 5.6 % (0-4.5); HEMATOCRIT 40.6 % (35.4-49); HEMOGLOBIN 13.7 GM/dL (11.7-16.9); LYMPH % 20.4 % (8-40); MCH 32.9 pg (25.7-33.7); MCHC 33.7 g/dl (32.0-35.9); MEAN CELL VOLUME 97.7 fl (80-96); MEAN PLT VOLUME 7.6 fl (7.5-11.1); NEUT % 62.1 % (42.8-82.8); PLATELET COUNT 170 10^3/uL (134-434); RBC 4.16 M/mm3 (4.00-5.60); RDW 12.4 % (11.9-15.9); WHITE BLOOD COUNT 5.2 K/mm3 (4.0-10.0)
[2022-11-26 09:50] LABS: POTASSIUM 4.2 mmol/L (3.5-5.1)
[2022-11-26 09:51] LABS: CALCIUM 8.9 mg/dL (8.5-10.1)
[2022-11-26 09:55] LABS: CREATININE 0.6 mg/dL (0.55-1.3)
[2022-11-26] MEDS ORDERED: THIAMINE HCL 100 MG TABLET (FP) PO SCH (10:00)
[2022-11-26] MEDS ORDERED: FOLIC ACID 1 MG TABLET (FP) PO SCH (10:00)
[2022-11-26] MEDS: PANTOPRAZOLE 40 MG TABLET PO SCH (10:02)
[2022-11-26 12:38] VITALS: BP 142/81; PULSE 73; RESP 19; TEMP 97.9
== END 2022-11-26 14:10 | disposition left against medical advice (07) | DRG 282 ==
LOC: JER 10:09 → JERBED 13:51 → J6S 20:29 → UNDODISIN 11-26 14:07
PROVIDERS: ADMIT Internal Medicine; ATTEND Internal Medicine
DX: K85.20 Alcohol induced acute pancreatitis without necrosis or infection (principal); J45.909 Unspecified asthma, uncomplicated; E83.52 Hypercalcemia; E87.5 Hyperkalemia; D75.1 Secondary polycythemia; F10.10 Alcohol abuse, uncomplicated; E78.5 Hyperlipidemia, unspecified; R06.6 Hiccough; Z53.29 Procedure and treatment not carried out because of patient's decision for other reasons
CPT/HCPCS: 0241U-QW; 36415; 70450-TC; 70496-TC; 70498-TC; 71045-TC-FY; 76705-TC; 80048; 80053; 80061; 80076; 80307; 82140; 82310; 82803; 83036; 83605; 83690; 83735; 83970; 84100; 84439; 84443; 84484; 85025; 85027; 85610; 85730; 86618; 86704; 86803; 86850; 86900; 86901; 87340; 87517; 93005; 93010; 93306-TC; 93880-TC; 99285-25; G0378; J0475; Q9967

== ENCOUNTER 2023-05-30 22:33 | Inpatient (IN) | payer OTHER ==
[2023-05-30] MEDS: SODIUM CHLORIDE 0.9% 500 ML INFUS.BAG IV ONE (23:57)
[2023-05-31] MEDS: morphine CARPU-JECT 2 MG/1 ML DISP.SYRIN IVPUSH ONE (00:15)
[2023-05-31 00:27] LABS: BASO % 1.3 % (0-2.0); EOS % 2.3 % (0-4.5); HEMATOCRIT 50.7 % (35.4-49); HEMOGLOBIN 17.5 GM/dL (11.7-16.9); LYMPH % 28.6 % (8-40); MCH 33.3 pg (25.7-33.7); MCHC 34.5 g/dl (32.0-35.9); MEAN CELL VOLUME 96.5 fl (80-96); MEAN PLT VOLUME 7.3 fl (7.5-11.1); MONO % 7.6 % (3.8-10.2); NEUT % 60.2 % (42.8-82.8); PLATELET COUNT 192 10^3/uL (134-434); RBC 5.25 M/mm3 (4.00-5.60); RDW 12.6 % (11.9-15.9); WHITE BLOOD COUNT 5.2 K/mm3 (4.0-10.0)
[2023-05-31] MEDS ORDERED: ACETAMINOPHEN INJECTION 100 ML IVPB ONE (00:38)
[2023-05-31] MEDS: ACETAMINOPHEN 1000 MG/100 ML BAG IVPB ONE (00:43)
[2023-05-31 00:44] LABS: CALCIUM 10.1 mg/dL (8.5-10.1)
[2023-05-31 00:46] LABS: ALBUMIN 3.6 g/dl (3.4-5.0); BLOOD UREA NITROGEN 6.8 mg/dL (7-18); MAGNESIUM 1.7 mg/dL (1.8-2.4); POTASSIUM 3.7 mmol/L (3.5-5.1)
[2023-05-31 00:48] LABS: CREATININE 0.7 mg/dL (0.55-1.3)
[2023-05-31 00:50] LABS: BILIRUBIN,TOTAL 1.2 mg/dL (0.2-1); TOT PROT 7.4 g/dl (6.4-8.2)
[2023-05-31 01:01] LABS: LACTIC ACID 3.1 mmol/L (0.4-2.0)
[2023-05-31] MEDS ORDERED: ONDANSETRON 4 MG/2 ML VIAL IVPUSH PRN (02:36)
[2023-05-31] MEDS: LACTATED RINGERS SOLUTION 1,000 ML/1,000 ML INFUS.BAG IV SCH (03:14)
[2023-05-31 04:16] LABS: EPI CELLS 3 /uL (0-25.1); HYALINE CASTS 0 /uL (0-3.1); PH,URINE 5.5 (5.0-8.0); URINE APPEARANCE CLEAR; URINE BACTERIA 16 /uL (0-1359); URINE BILIRUBIN NEGATIVE (NEGATIVE); URINE COLOR YELLOW; URINE GLUCOSE (UA) NEGATIVE (NEGATIVE); URINE KETONE 2+ (NEGATIVE); URINE LEUK ESTERASE NEGATIVE (NEGATIVE); URINE NITRITE NEGATIVE (NEGATIVE); URINE PROTEIN TRACE (NEGATIVE); URINE RBC 3 /uL (0-23.9); URINE WBC 6 /uL (0-25.8)
[2023-05-31 07:58] LABS: BASO % 1.9 % (0-2.0); EOS % 6.7 % (0-4.5); HEMATOCRIT 47.3 % (35.4-49); HEMOGLOBIN 15.9 GM/dL (11.7-16.9); LYMPH % 34.1 % (8-40); MCH 33.1 pg (25.7-33.7); MCHC 33.7 g/dl (32.0-35.9); MEAN CELL VOLUME 98.2 fl (80-96); MEAN PLT VOLUME 7.2 fl (7.5-11.1); MONO % 8.5 % (3.8-10.2); NEUT % 48.8 % (42.8-82.8); PLATELET COUNT 151 10^3/uL (134-434); RBC 4.81 M/mm3 (4.00-5.60); RDW 12.3 % (11.9-15.9); WHITE BLOOD COUNT 3.9 K/mm3 (4.0-10.0)
[2023-05-31 08:31] LABS: POTASSIUM 3.6 mmol/L (3.5-5.1)
[2023-05-31 09:19] LABS: ALBUMIN 3.1 g/dl (3.4-5.0); MAGNESIUM 1.5 mg/dL (1.8-2.4)
[2023-05-31 09:21] LABS: BLOOD UREA NITROGEN 5.2 mg/dL (7-18); PHOSPHOROUS 3.4 mg/dL (2.5-4.9)
[2023-05-31 09:23] LABS: CREATININE 0.5 mg/dL (0.55-1.3)
[2023-05-31 09:24] LABS: TOT PROT 6.4 g/dl (6.4-8.2)
[2023-05-31 09:26] LABS: BILIRUBIN,TOTAL 1.3 mg/dL (0.2-1); CALCIUM 8.4 mg/dL (8.5-10.1)
[2023-05-31] MEDS ORDERED: NICOTINE 7 MG/24 HOURS TOPICAL PATCH TD ONE (09:30)
[2023-05-31] MEDS ORDERED: ENOXAPARIN NA (PORCINE) 40 MG/0.4 ML DISP.SYRIN SQ ONE (09:30)
[2023-05-31] MEDS ORDERED: MAGNESIUM SULFATE IN WATER 2 GM/50 ML IVPB IVPB ONE (09:30)
[2023-05-31] MEDS ORDERED: amLODIPine BESYLATE 5 MG TABLET (FP) ONE (09:30)
[2023-05-31] MEDS ORDERED: morphine SULFATE 4 MG/ML VIAL ONE ×2 (09:34→14:14)
[2023-05-31] MEDS: morphine SULFATE 4 MG/ML VIAL IVPUSH PRN (09:43)
[2023-05-31] MEDS: NICOTINE 7 MG/24 HOURS TOPICAL PATCH TD SCH (09:43)
[2023-05-31] MEDS: amLODIPine BESYLATE 5 MG TABLET (FP) PO SCH (09:43)
[2023-05-31] MEDS: MAGNESIUM SULFATE IN WATER 2 GM/50 ML IVPB IVPB ONE (09:43)
[2023-05-31] MEDS: ENOXAPARIN NA (PORCINE) 40 MG/0.4 ML DISP.SYRIN SQ SCH (09:43)
[2023-05-31] MEDS ORDERED: THIAMINE HCL 100 MG TABLET (FP) ONE (12:38)
[2023-05-31] MEDS ORDERED: MULTIVITAMINS (DAILY MVI) TABLET (FP) ONE (12:39)
[2023-05-31] MEDS ORDERED: FOLIC ACID 1 MG TABLET (FP) ONE (12:39)
[2023-05-31] MEDS: FOLIC ACID 1 MG TABLET (FP) PO SCH (12:58)
[2023-05-31] MEDS: THIAMINE HCL 100 MG TABLET (FP) PO SCH (12:58)
[2023-05-31] MEDS: MULTIVITAMINS (DAILY MVI) TABLET (FP) PO SCH (12:58)
[2023-05-31] MEDS: CYANOCOBALAMIN 1,000 MCG TABLET (FP) PO SCH (13:22)
[2023-05-31 16:12] VITALS: RESP 18; BMI 26.2
[2023-05-31] MEDS: KETOROLAC TROMETHAMINE 15 MG/ML VIAL IVPUSH PRN (22:27)
[2023-05-31] MEDS: TRIMETHOBENZAMIDE HCL 200MG/2ML INJ IM PRN (22:28)
[2023-06-01] MEDS: LOSARTAN POTASSIUM 25 MG TABLET PO SCH (05:54)
[2023-06-01] MEDS ORDERED: LACTATED RINGERS SOLUTION 1,000 ML/1,000 ML INFUS.BAG IV SCH ×2 (08:45)
[2023-06-01] MEDS: PANTOPRAZOLE SODIUM 40 MG VIAL IVPUSH SCH (09:17)
[2023-06-01] MEDS: amLODIPine BESYLATE 10 MG TABLET (FP) PO SCH (10:51)
[2023-06-01 11:06] LABS: BASO % 0.7 % (0-2.0); HEMATOCRIT 53.9 % (35.4-49); HEMOGLOBIN 18.2 GM/dL (11.7-16.9); LYMPH % 17.3 % (8-40); MCH 33.1 pg (25.7-33.7); MCHC 33.8 g/dl (32.0-35.9); MEAN CELL VOLUME 98.1 fl (80-96); MEAN PLT VOLUME 7.5 fl (7.5-11.1); MONO % 8.2 % (3.8-10.2); NEUT % 71.8 % (42.8-82.8); PLATELET COUNT 191 10^3/uL (134-434); RDW 12.1 % (11.9-15.9); WHITE BLOOD COUNT 6.1 K/mm3 (4.0-10.0)
[2023-06-01 11:12] LABS: INR 1.09 (0.83-1.09); PROTHROMBIN TIME (PATIENT) 12.6 SEC (9.7-13.0)
[2023-06-01 11:56] LABS: POTASSIUM 4.1 mmol/L (3.5-5.1)
[2023-06-01 12:04] LABS: BLOOD UREA NITROGEN 4.7 mg/dL (7-18); CALCIUM 9.5 mg/dL (8.5-10.1); CREATININE 0.6 mg/dL (0.55-1.3); PHOSPHOROUS 2.8 mg/dL (2.5-4.9)
[2023-06-01 12:05] LABS: MAGNESIUM 1.9 mg/dL (1.8-2.4); TOT PROT 7.9 g/dl (6.4-8.2)
[2023-06-01 12:08] LABS: BILIRUBIN,DIRECT 0.8 mg/dL (0.0-0.2)
[2023-06-01 12:11] LABS: BILIRUBIN,TOTAL 1.8 mg/dL (0.2-1)
[2023-06-01 12:13] LABS: ALBUMIN 3.8 g/dl (3.4-5.0)
[2023-06-02] MEDS: LACTATED RINGERS SOLUTION 1,000 ML/1,000 ML INFUS.BAG IV SCH (08:42)
[2023-06-02 09:02] VITALS: BP 117/79; PULSE 92; TEMP 98.4
[2023-06-02 11:07] LABS: BASO % 1.2 % (0-2.0); EOS % 5.9 % (0-4.5); HEMATOCRIT 49.9 % (35.4-49); HEMOGLOBIN 17.1 GM/dL (11.7-16.9); LYMPH % 28.2 % (8-40); MCH 33.6 pg (25.7-33.7); MCHC 34.3 g/dl (32.0-35.9); MEAN CELL VOLUME 97.7 fl (80-96); MONO % 13.1 % (3.8-10.2); NEUT % 51.6 % (42.8-82.8); PLATELET COUNT 162 10^3/uL (134-434); RDW 11.9 % (11.9-15.9); WHITE BLOOD COUNT 3.4 K/mm3 (4.0-10.0)
[2023-06-02 11:20] LABS: POTASSIUM 4.1 mmol/L (3.5-5.1)
[2023-06-02 11:29] LABS: CALCIUM 9.7 mg/dL (8.5-10.1)
[2023-06-02 11:30] LABS: ALBUMIN 3.3 g/dl (3.4-5.0); BLOOD UREA NITROGEN 8.9 mg/dL (7-18); MAGNESIUM 1.6 mg/dL (1.8-2.4)
[2023-06-02 11:33] LABS: CREATININE 0.9 mg/dL (0.55-1.3); PHOSPHOROUS 2.1 mg/dL (2.5-4.9)
[2023-06-02 11:35] LABS: BILIRUBIN,TOTAL 1.6 mg/dL (0.2-1)
== END 2023-06-02 12:45 | disposition left against medical advice (07) | DRG 282 ==
LOC: JER 22:33 → JERBED 05-31 01:12 → OBSVTOIN 05-31 08:29 → J6S 05-31 15:44
PROVIDERS: ADMIT Internal Medicine; ATTEND Internal Medicine
DX: K85.20 Alcohol induced acute pancreatitis without necrosis or infection (principal); R94.5 Abnormal results of liver function studies; J45.909 Unspecified asthma, uncomplicated; E87.20 Acidosis, unspecified; E80.6 Other disorders of bilirubin metabolism; I16.0 Hypertensive urgency; K76.0 Fatty (change of) liver, not elsewhere classified; E87.1 Hypo-osmolality and hyponatremia; F10.129 Alcohol abuse with intoxication, unspecified; Y90.7 Blood alcohol level of 200-239 mg/100 ml
CPT/HCPCS: 36415; 71045-TC-FY; 74181-TC; 76705-TC; 80053; 80061; 80307; 81003; 82105; 82248; 82693; 82977; 83605; 83615; 83690; 83735; 84100; 84484; 85025; 85610; 86705; 86708; 87086; 87517; 87522; 93005; 93010; 99285-25; G0378; J0131

== ENCOUNTER 2023-06-10 23:13 | Inpatient (IN) | payer OTHER ==
[2023-06-10 23:59] VITALS: BMI 27.2
[2023-06-11] MEDS ORDERED: NALOXONE HCL (KLOXXADO) 8 MG SPRAY NS PRN (00:30)
[2023-06-11] MEDS ORDERED: MAGNESIUM HYDROX 2400MG/30ML ORAL SUSPENSION 30 ML CUP PO PRN (00:30)
[2023-06-11] MEDS ORDERED: NICOTINE POLACRILEX 2 MG GUM BUC PRN (00:30)
[2023-06-11] MEDS ORDERED: LOPERAMIDE HCL 2 MG CAPSULE PO PRN (00:30)
[2023-06-11] MEDS ORDERED: BENZONATATE 200 MG CAPSULE PO PRN (00:30)
[2023-06-11] MEDS ORDERED: guaiFENesin 600 MG TABLET.ER (FP) PO PRN (00:30)
[2023-06-11] MEDS ORDERED: POLYETHYLENE GLYCOL (HEALTHYLAX) 3350 17 GM PACKET PO PRN (00:30)
[2023-06-11] MEDS ORDERED: BENZOCAINE/MENTHOL (CHLORASEPTIC ) LOZENGE MM PRN (00:30)
[2023-06-11] MEDS ORDERED: BISMUTH SUBSALICYLATE 524 MG/30 ML PO PRN (00:30)
[2023-06-11] MEDS ORDERED: NALOXONE HCL 0.4 MG/ML VIAL IM PRN (00:30)
[2023-06-11] MEDS ORDERED: IBUPROFEN 400 MG TABLET (FP) PO PRN (00:30)
[2023-06-11] MEDS ORDERED: MAG HYDROX/AL HYDROX/SIMETH 30 ML UNIT-DOSE CUP PO PRN (00:30)
[2023-06-11] MEDS ORDERED: DICYCLOMINE HCL 10 MG CAPSULE PO PRN (00:30)
[2023-06-11] MEDS ORDERED: ONDANSETRON *ODT* 4 MG TABLET SL PRN (00:30)
[2023-06-11] MEDS ORDERED: MELATONIN 5 MG TABLETS PO ONE (01:22)
[2023-06-11] MEDS: LORazepam 2 MG TABLET PO SCH ×4 (05:14→22:10)
[2023-06-11] MEDS: NICOTINE 14 MG/24 HOURS TOPICAL PATCH TD SCH (10:22)
[2023-06-11] MEDS: PRENATAL VITAMINS W/ FOLIC ACID TABLET (FP) PO SCH (10:22)
[2023-06-11 10:59] LABS: POTASSIUM 3.3 mmol/L (3.5-5.1)
[2023-06-11 11:17] LABS: HEMATOCRIT 45.4 % (35.4-49); HEMOGLOBIN 15.4 GM/dL (11.7-16.9); MEAN CELL VOLUME 97.1 fl (80-96); MEAN PLT VOLUME 8.3 fl (7.5-11.1); PLATELET COUNT 333 10^3/uL (134-434); RBC 4.68 M/mm3 (4.00-5.60); RDW 11.9 % (11.9-15.9); WHITE BLOOD COUNT 3.7 K/mm3 (4.0-10.0)
[2023-06-11 11:24] LABS: ALBUMIN 3.1 g/dl (3.4-5.0)
[2023-06-11 11:25] LABS: BLOOD UREA NITROGEN 3.7 mg/dL (7-18)
[2023-06-11 11:28] LABS: CREATININE 0.8 mg/dL (0.55-1.3)
[2023-06-11 11:29] LABS: TOT PROT 6.6 g/dl (6.4-8.2)
[2023-06-11 11:30] LABS: BILIRUBIN,TOTAL 0.3 mg/dL (0.2-1)
[2023-06-11 11:31] LABS: CALCIUM 8.1 mg/dL (8.5-10.1)
[2023-06-11] MEDS ORDERED: POTASSIUM CHLORIDE ORAL LIQUID 20 MEQ/15 ML PO ONE (15:15)
[2023-06-11] MEDS: LORazepam 1 MG TABLET PO PRN (15:30)
[2023-06-11] MEDS ORDERED: INSULIN (NOVOLOG) ASPART 100 UNITS/ML 10ML VIAL SQ SCH (16:30)
[2023-06-11] MEDS: INSULIN ASPART SLIDING SCALE (NOVOLOG) 1 VIAL SQ SCH ×2 (17:07→21:30)
[2023-06-11] MEDS: ACETAMINOPHEN 325 MG TABLET (FP) PO PRN (17:28)
[2023-06-11] MEDS: METHOCARBAMOL 500 MG TABLET PO PRN ×2 (18:06→22:11)
[2023-06-11] MEDS: POTASSIUM CHLORIDE ORAL LIQUID 20 MEQ/15 ML PO SCH (22:10)
[2023-06-11] MEDS: THIAMINE HCL 100 MG TABLET (FP) PO SCH (22:10)
[2023-06-11] MEDS: MELATONIN 5 MG TABLETS PO SCH (22:10)
[2023-06-12] MEDS: LORazepam 1 MG TABLET PO SCH ×4 (05:30→22:11)
[2023-06-12] MEDS: IBUPROFEN 600 MG TABLET (FP) PO PRN ×2 (05:31→14:31)
[2023-06-12] MEDS: INSULIN ASPART SLIDING SCALE (NOVOLOG) 1 VIAL SQ SCH ×5 (07:16→21:53)
[2023-06-12] MEDS: NICOTINE 14 MG/24 HOURS TOPICAL PATCH TD SCH (10:04)
[2023-06-12] MEDS: PRENATAL VITAMINS W/ FOLIC ACID TABLET (FP) PO SCH (10:04)
[2023-06-12] MEDS: POTASSIUM CHLORIDE ORAL LIQUID 20 MEQ/15 ML PO SCH ×2 (10:04→22:08)
[2023-06-12] MEDS: METHOCARBAMOL 500 MG TABLET PO PRN ×3 (10:05→22:09)
[2023-06-12 11:04] LABS: POTASSIUM 3.6 mmol/L (3.5-5.1)
[2023-06-12 11:22] LABS: BLOOD UREA NITROGEN 6.6 mg/dL (7-18); CALCIUM 8.8 mg/dL (8.5-10.1)
[2023-06-12 11:26] LABS: CREATININE 0.8 mg/dL (0.55-1.3)
[2023-06-12 11:27] LABS: BILIRUBIN,TOTAL 0.8 mg/dL (0.2-1); TOT PROT 6.1 g/dl (6.4-8.2)
[2023-06-12] MEDS: LORazepam 1 MG TABLET PO PRN (14:31)
[2023-06-12] MEDS: ACETAMINOPHEN 325 MG TABLET (FP) PO PRN (17:35)
[2023-06-12] MEDS: THIAMINE HCL 100 MG TABLET (FP) PO SCH (22:09)
[2023-06-12] MEDS: MELATONIN 5 MG TABLETS PO SCH (22:09)
[2023-06-12] MEDS ORDERED: MELATONIN 5 MG TABLETS PO ONE (23:35)
[2023-06-13] MEDS ORDERED: LORazepam 0.5 MG TABLET PO PRN
[2023-06-13] MEDS: LORazepam 0.5 MG TABLET PO SCH ×4 (05:23→22:07)
[2023-06-13] MEDS: INSULIN ASPART SLIDING SCALE (NOVOLOG) 1 VIAL SQ SCH ×4 (06:08→21:34)
[2023-06-13] MEDS: POTASSIUM CHLORIDE ORAL LIQUID 20 MEQ/15 ML PO SCH (10:19)
[2023-06-13] MEDS: PRENATAL VITAMINS W/ FOLIC ACID TABLET (FP) PO SCH (10:19)
[2023-06-13] MEDS: METHOCARBAMOL 500 MG TABLET PO PRN ×2 (10:21→17:28)
[2023-06-13] MEDS: NICOTINE 14 MG/24 HOURS TOPICAL PATCH TD SCH (10:22)
[2023-06-13] MEDS ORDERED: IBUPROFEN 400 MG TABLET (FP) PO PRN (15:29)
[2023-06-13] MEDS: THIAMINE HCL 100 MG TABLET (FP) PO SCH (22:07)
[2023-06-13] MEDS: MELATONIN 5 MG TABLETS PO SCH (22:07)
[2023-06-14] MEDS ORDERED: LORazepam 0.5 MG TABLET PO ONE (05:00)
[2023-06-14 05:55] VITALS: TEMP 97.7
[2023-06-14] MEDS: INSULIN ASPART SLIDING SCALE (NOVOLOG) 1 VIAL SQ SCH (06:01)
[2023-06-14 08:48] VITALS: BP 124/77; PULSE 67; RESP 18
== END 2023-06-14 09:29 | disposition home or self-care (01) | DRG 775 ==
LOC: YASAS 23:13 → Y3N 06-11 00:38
PROVIDERS: ADMIT Allergy & Immunology; ATTEND Surgery
PROC: HZ2ZZZZ Detoxification Services for Substance Abuse Treatment (ICD-10-PCS; principal; 2023-06-11)
DX: F10.230 Alcohol dependence with withdrawal, uncomplicated (principal); F10.220 Alcohol dependence with intoxication, uncomplicated; F17.210 Nicotine dependence, cigarettes, uncomplicated; I10 Essential (primary) hypertension; E11.9 Type 2 diabetes mellitus without complications; E78.5 Hyperlipidemia, unspecified; J45.909 Unspecified asthma, uncomplicated; Z79.4 Long term (current) use of insulin; Z86.73 Personal history of transient ischemic attack (TIA), and cerebral infarction without residual deficits
CPT/HCPCS: 36415; 80053; 80307; 82962; 85027; 86780; 87635

== ENCOUNTER 2023-07-30 08:55 | Inpatient (IN) | payer OTHER ==
[2023-07-30 09:40] VITALS: BMI 20.7
[2023-07-30] MEDS ORDERED: ACETAMINOPHEN INJECTION 100 ML IVPB ONE (10:20)
[2023-07-30] MEDS ORDERED: ONDANSETRON 4 MG/2 ML VIAL ONE (10:20)
[2023-07-30] MEDS: ONDANSETRON 4 MG/2 ML VIAL IVPUSH ONE (10:32)
[2023-07-30] MEDS: ACETAMINOPHEN 1000 MG/100 ML BAG IVPB ONE (10:32)
[2023-07-30 10:41] LABS: BASO % 1.4 % (0-2.0); EOS % 4.9 % (0-4.5); HEMATOCRIT 41.3 % (35.4-49); HEMOGLOBIN 14.7 GM/dL (11.7-16.9); LYMPH % 24.7 % (8-40); MCH 32.8 pg (25.7-33.7); MCHC 35.6 g/dl (32.0-35.9); MEAN PLT VOLUME 8.7 fl (7.5-11.1); MONO % 8.5 % (3.8-10.2); NEUT % 60.5 % (42.8-82.8); PLATELET COUNT 328 10^3/uL (134-434); RBC 4.49 M/mm3 (4.00-5.60); RDW 11.7 % (11.9-15.9); WHITE BLOOD COUNT 6.1 K/mm3 (4.0-10.0)
[2023-07-30 10:43] LABS: URINE APPEARANCE CLEAR; URINE BILIRUBIN NEGATIVE (NEGATIVE); URINE COLOR YELLOW; URINE GLUCOSE (UA) 3+ (NEGATIVE); URINE KETONE 3+ (NEGATIVE); URINE LEUK ESTERASE NEGATIVE (NEGATIVE); URINE NITRITE NEGATIVE (NEGATIVE); URINE PROTEIN NEGATIVE (NEGATIVE); URINE UROBILINOGEN 0.2 mg/dL (0.2-1.0)
[2023-07-30 10:53] LABS: VENOUS BASE EXCESS -5.5 mmol/L (-2-2); VENOUS O2 SATURATION 85.4 % (70-80); VENOUS PCO2 37.5 mmHg (38-52); VENOUS PH 7.337 (7.310-7.410)
[2023-07-30] MEDS: LACTATED RINGERS SOLUTION 1000 ML INFUS.BAG IV ONE (10:59)
[2023-07-30 11:02] LABS: CHLORIDE 92 mmol/L (98-107); POTASSIUM 4.7 mmol/L (3.5-5.1); SODIUM 131 mmol/L (136-145)
[2023-07-30 11:04] LABS: CALCIUM 9.7 mg/dL (8.5-10.1)
[2023-07-30 11:05] LABS: ALBUMIN 3.7 g/dl (3.4-5.0); ANION GAP 17 mmol/L (4-13); BLOOD UREA NITROGEN 12.3 mg/dL (7-18); CO2 23 mmol/L (21-32); MAGNESIUM 1.9 mg/dL (1.8-2.4)
[2023-07-30 11:07] LABS: SGPT/ALT 22 U/L (13-61)
[2023-07-30 11:08] LABS: CREATININE 1.1 mg/dL (0.55-1.3); SGOT/AST 12 U/L (15-37)
[2023-07-30 11:09] LABS: BILIRUBIN,TOTAL 0.7 mg/dL (0.2-1); TOT PROT 7.6 g/dl (6.4-8.2)
[2023-07-30 11:10] LABS: ALK PHOS 143 U/L (45-117)
[2023-07-30 11:20] LABS: GLUCOSE,RANDOM 498 mg/dL (74-106)
[2023-07-30] MEDS ORDERED: DEXTROSE 50%-WATER - 25 GM/50 ML VIAL IVPUSH PRN (11:32)
[2023-07-30] MEDS ORDERED: DEXTROSE 50%-WATER 25 GM/50 ML DISP.SYRIN IVPUSH PRN ×2 (11:59→23:26)
[2023-07-30] MEDS: INSULIN (NOVOLOG) ASPART 100 UNITS/ML 10ML VIAL SQ ONE (12:16)
[2023-07-30] MEDS: LACTATED RINGERS SOLUTION 1,000 ML IV STA (12:29)
[2023-07-30] MEDS ORDERED: ALBUTEROL SO4 2.5/IPRATROPIUM 0.5 INH SOL 3 ML VIAL.NEB. NEB SCH (12:30)
[2023-07-30] MEDS: INSULIN REGULAR 100 UNITS in SODIUM CHLORIDE 99 ML IVPB SCH (13:00)
[2023-07-30] MEDS: LACTATED RINGERS SOLUTION 1,000 ML with POTASSIUM CHLORIDE 20 MEQ IV ONE (14:19)
[2023-07-30] MEDS: METOCLOPRAMIDE HCL INJECTION 10 MG/2 ML VIAL IVPB ONE (14:24)
[2023-07-30] MEDS ORDERED: DEXTROSE 5%-LACTATED RINGERS 1,000 ML IV SCH (15:00)
[2023-07-30] MEDS: D5-LR+20 MEQ KCL - 20 MEQ/1,000 ML INFUS.BAG IV SCH (15:23)
[2023-07-30] MEDS ORDERED: D5-1/2NS+20 MEQ KCL - 20 MEQ/1,000 ML INFUS.BAG IV SCH (15:30)
[2023-07-30 16:32] LABS: POTASSIUM 3.5 mmol/L (3.5-5.1)
[2023-07-30 16:33] LABS: CALCIUM 8.9 mg/dL (8.5-10.1)
[2023-07-30 16:34] LABS: BLOOD UREA NITROGEN 8.8 mg/dL (7-18)
[2023-07-30 16:37] LABS: CREATININE 0.8 mg/dL (0.55-1.3)
[2023-07-30] MEDS ORDERED: INSULIN (NOVOLOG) ASPART 100 UNITS/ML 10ML VIAL ONE (20:22)
[2023-07-30] MEDS: ACETAMINOPHEN 1000 MG/100 ML BAG IVPB PRN (20:39)
[2023-07-30] MEDS: MUPIROCIN 2% TOPICAL OINTMENT FOR DECOLONIZATION NS SCH (22:22)
[2023-07-30] MEDS: INSULIN ASPART SLIDING SCALE (NOVOLOG) 1 VIAL SQ SCH (22:23)
[2023-07-30] MEDS: CHLORHEXIDINE GLUCONATE 4% CLEANSER FOR DECOLONIZATION TP SCH (22:23)
[2023-07-30] MEDS: INSULIN (LEVEMIR) 100 UNITS/ML UNITS SQ SCH (22:23)
[2023-07-30] MEDS ORDERED: ACETAMINOPHEN 1000 MG/100 ML BAG IVPB PRN (23:26)
[2023-07-31 05:21] VITALS: RESP 18
[2023-07-31] MEDS: INSULIN ASPART SLIDING SCALE (NOVOLOG) 1 VIAL SQ SCH (06:16)
[2023-07-31] MEDS: PANTOPRAZOLE SODIUM 40 MG VIAL IV SCH (09:22)
[2023-07-31] MEDS: INSULIN (LEVEMIR) 100 UNITS/ML UNITS SQ SCH (09:23)
[2023-07-31] MEDS ORDERED: PANTOPRAZOLE SODIUM 40 MG VIAL IV SCH (10:00)
[2023-07-31 10:07] LABS: BASO % 1.7 % (0-2.0); EOS % 7.2 % (0-4.5); HEMATOCRIT 37.5 % (35.4-49); LYMPH % 36.7 % (8-40); MCH 31.8 pg (25.7-33.7); MCHC 34.6 g/dl (32.0-35.9); MEAN CELL VOLUME 91.7 fl (80-96); MEAN PLT VOLUME 8.7 fl (7.5-11.1); MONO % 10.2 % (3.8-10.2); NEUT % 44.2 % (42.8-82.8); PLATELET COUNT 267 10^3/uL (134-434); RBC 4.09 M/mm3 (4.00-5.60); RDW 11.5 % (11.9-15.9); WHITE BLOOD COUNT 3.9 K/mm3 (4.0-10.0)
[2023-07-31 10:20] VITALS: BP 124/75; PULSE 77; TEMP 98
[2023-07-31 10:30] LABS: MAGNESIUM 1.5 mg/dL (1.8-2.4)
[2023-07-31 10:33] LABS: PHOSPHOROUS 3.4 mg/dL (2.5-4.9)
[2023-07-31] MEDS ORDERED: INSULIN (LEVEMIR) 100 UNITS/ML UNITS SQ SCH (10:44)
[2023-07-31] MEDS: MAGNESIUM 1GM/D5W - 1 GM/100 ML IVPB IVPB ONE (11:14)
== END 2023-07-31 13:18 | disposition home or self-care (01) | DRG 420 ==
LOC: JER 08:55 → JERBED 11:36 → JICU 12:45 → J6S 23:23
PROVIDERS: ADMIT Internal Medicine Pulmonary Disease; ATTEND Internal Medicine
PROC: 3E033VG Introduction of Insulin into Peripheral Vein, Percutaneous Approach (ICD-10-PCS; principal; 2023-07-30)
DX: E10.10 Type 1 diabetes mellitus with ketoacidosis without coma (principal); I10 Essential (primary) hypertension; F17.210 Nicotine dependence, cigarettes, uncomplicated; J45.909 Unspecified asthma, uncomplicated; Z79.4 Long term (current) use of insulin
CPT/HCPCS: 0241U-QW; 36415; 71045-TC-FY; 80048; 80053; 81003; 82010; 82803; 82962; 83036; 83690; 83735; 84100; 85025; 87086; 93005; 93010; 99291; J0131

== ENCOUNTER 2023-09-05 21:21 | Emergency (ER) | payer OTHER ==
[2023-09-05 21:27] VITALS: RESP 20; BMI 21.2
[2023-09-05] MEDS ORDERED: ALBUTEROL SO4 2.5/IPRATROPIUM 0.5 INH SOL 3 ML VIAL.NEB. NEB ONE (22:28)
[2023-09-05] MEDS: ALBUTEROL SO4 2.5/IPRATROPIUM 0.5 INH SOL 3 ML VIAL.NEB. NEB ONE (22:50)
[2023-09-05] MEDS: LACTATED RINGERS SOLUTION 1000 ML INFUS.BAG IV ONE (22:50)
[2023-09-05] MEDS: ACETAMINOPHEN 1000 MG/100 ML BAG IVPB ONE (22:53)
[2023-09-05 22:57] LABS: VENOUS BASE EXCESS -1.9 mmol/L (-2-2); VENOUS O2 SATURATION 57.4 % (70-80); VENOUS PCO2 45.5 mmHg (38-52); VENOUS PH 7.343 (7.310-7.410)
[2023-09-05 23:00] LABS: BASO % 0.8 % (0-2.0); EOS % 2.4 % (0-4.5); LYMPH % 14.7 % (8-40); MCH 32.3 pg (25.7-33.7); MCHC 34.2 g/dl (32.0-35.9); MEAN CELL VOLUME 94.3 fl (80-96); MEAN PLT VOLUME 7.6 fl (7.5-11.1); NEUT % 74.1 % (42.8-82.8); PLATELET COUNT 240 10^3/uL (134-434); RBC 4.66 M/mm3 (4.00-5.60); RDW 13.3 % (11.9-15.9); WHITE BLOOD COUNT 7.9 K/mm3 (4.0-10.0)
[2023-09-05 23:29] LABS: POTASSIUM 3.8 mmol/L (3.5-5.1)
[2023-09-05 23:31] LABS: CALCIUM 9.1 mg/dL (8.5-10.1)
[2023-09-05 23:32] LABS: ALBUMIN 3.9 g/dl (3.4-5.0); BLOOD UREA NITROGEN 9.2 mg/dL (7-18); MAGNESIUM 1.9 mg/dL (1.8-2.4)
[2023-09-05 23:35] LABS: CREATININE 0.7 mg/dL (0.55-1.3)
[2023-09-05 23:37] LABS: BILIRUBIN,TOTAL 0.3 mg/dL (0.2-1); TOT PROT 7.6 g/dl (6.4-8.2)
[2023-09-05 23:39] VITALS: BP 134/68; TEMP 98.4
[2023-09-05 23:45] VITALS: PULSE 90
[2023-09-06] MEDS ORDERED: ALBUTEROL SO4 HFA INHALER IH ONE (00:20)
[2023-09-06] MEDS: ALBUTEROL SO4 HFA INHALER IH ONE (00:25)
== END 2023-09-06 01:09 | disposition home or self-care (01) ==
LOC: JER 21:21
PROC: 3E030NZ Introduction of Analgesics, Hypnotics, Sedatives into Peripheral Vein, Open Approach (ICD-10-PCS; principal; 2023-09-05)
PROC: 3E0F7GC Introduction of Other Therapeutic Substance into Respiratory Tract, Via Natural or Artificial Opening (ICD-10-PCS; 2023-09-05)
DX: R06.02 Shortness of breath (principal); R07.89 Other chest pain; R05.9 Cough, unspecified; R53.81 Other malaise; R50.9 Fever, unspecified; R53.1 Weakness; J45.909 Unspecified asthma, uncomplicated; J10.1 Influenza due to other identified influenza virus with other respiratory manifestations; F10.10 Alcohol abuse, uncomplicated; Z20.822 Contact with and (suspected) exposure to COVID-19
CPT/HCPCS: 0241U-QW; 36415; 71046-TC-FY; 80053; 82803; 82962; 83690; 83735; 85025; 93005; 93010; 99285-25; J0131

== ENCOUNTER 2023-09-14 06:15 | Day surgery (SDC) | payer OTHER ==
[2023-09-14 06:25] VITALS: BMI 22.0
[2023-09-14] MEDS: ACETAMINOPHEN 500 MG TABLET (FP) PO ONE (06:36)
[2023-09-14] MEDS: IBUPROFEN 400 MG TABLET (FP) PO ONE (06:36)
[2023-09-14] MEDS ORDERED: FENTANYL CITRATE/PF 50 MCG/ML VIAL ONE ×3 (06:38→09:29)
[2023-09-14] MEDS ORDERED: ACETAMINOPHEN 325 MG TABLET (FP) ONE (06:38)
[2023-09-14] MEDS ORDERED: IBUPROFEN 400 MG TABLET (FP) PO ONE (06:39)
[2023-09-14 08:10] LABS: HEMOGLOBIN 13.5 GM/dL (11.7-16.9); MCH 31.8 pg (25.7-33.7); MCHC 33.7 g/dl (32.0-35.9); MEAN CELL VOLUME 94.4 fl (80-96); MEAN PLT VOLUME 6.8 fl (7.5-11.1); PLATELET COUNT 383 10^3/uL (134-434); RBC 4.24 M/mm3 (4.00-5.60); RDW 13.2 % (11.9-15.9); WHITE BLOOD COUNT 6.6 K/mm3 (4.0-10.0)
[2023-09-14 08:11] LABS: INR 0.95 (0.83-1.09)
[2023-09-14 08:13] LABS: ACTIVATED PTT 27.5 SECONDS (25.2-36.5)
[2023-09-14] MEDS: fentaNYL CITRATE/PF 1,000 MCG/20 ML AMPUL IVPUSH ONE (08:22)
[2023-09-14 08:25] LABS: POTASSIUM 4.3 mmol/L (3.5-5.1)
[2023-09-14 08:26] LABS: CALCIUM 9.4 mg/dL (8.5-10.1)
[2023-09-14 08:27] LABS: ALBUMIN 3.4 g/dl (3.4-5.0); BLOOD UREA NITROGEN 7.3 mg/dL (7-18)
[2023-09-14 08:30] LABS: CREATININE 0.8 mg/dL (0.55-1.3)
[2023-09-14 08:31] LABS: BILIRUBIN,TOTAL 0.5 mg/dL (0.2-1)
[2023-09-14 08:47] LABS: ANISOCYTOSIS 0; MACROCYTOSIS 0
[2023-09-14] MEDS ORDERED: BUPIVACAINE HCL/PF 0.5% (5MG/ML) 10 ML VIAL ONE (09:13)
[2023-09-14] MEDS ORDERED: MIDAZOLAM HCL 2 MG/2 ML SINGLE DOSE VIAL ONE (09:29)
[2023-09-14] MEDS ORDERED: PROPOFOL 20 ML ONE ×2 (09:29→09:48)
[2023-09-14] MEDS: ceFAZolin SODIUM 1 GM VIAL IVPB ONE (09:43)
[2023-09-14] MEDS: BUPIVACAINE HCL/PF 0.5% (5 MG/ML) 30 ML VIAL IJ ONE (09:47)
[2023-09-14] MEDS: BACITRACIN ZINC 15 GM TUBE TOPICAL OINTMENT TP ONE (09:56)
[2023-09-14] MEDS ORDERED: BACITRACIN ZINC 15 GM TUBE TOPICAL OINTMENT ONE (09:57)
[2023-09-14] MEDS ORDERED: ONDANSETRON 4 MG/2 ML VIAL ONE (10:02)
[2023-09-14] MEDS ORDERED: ceFAZolin SODIUM 1 GM VIAL ONE (10:02)
[2023-09-14] MEDS ORDERED: DEXAMETHASONE SOD PHOSPHATE 4 MG/1 ML VIAL ONE (10:02)
[2023-09-14] MEDS ORDERED: KETOROLAC TROMETHAMINE 30 MG/1 ML VIAL ONE (10:02)
[2023-09-14] MEDS ORDERED: oxyCODONE HCL 5 MG TABLET PO ONE (10:16)
[2023-09-14] MEDS ORDERED: ACETAMINOPHEN 1000 MG/100 ML BAG IVPB ONE (10:18)
[2023-09-14] MEDS ORDERED: LACTATED RINGERS SOLUTION 1,000 ML IV SCH (10:30)
[2023-09-14 11:51] VITALS: RESP 20; TEMP 97.3
[2023-09-14] MEDS ORDERED: oxyCODONE HCL 5 MG TABLET ONE (12:49)
[2023-09-14] MEDS: oxyCODONE HCL 5 MG TABLET PO ONE (12:51)
[2023-09-14 14:48] VITALS: BP 135/90; PULSE 80
[2023-09-14 16:19] LABS: GLUCOSE,RANDOM 759 mg/dL (74-106)
== END 2023-09-14 15:40 | disposition home or self-care (01) ==
LOC: JER 06:15 → JASUSAT 08:44
PROVIDERS: ATTEND Urology
PROC: 3E0 Administration, Physiological Systems and Anatomical Regions, Introduction (ICD-10-PCS; principal; 2023-09-14 09:30)
DX: N47.2 Paraphimosis (principal)
CPT/HCPCS: 36415; 80053; 82947; 82962; 85025; 85610; 85730; 86850; 86900; 86901; 94760; 99285-25

== ENCOUNTER 2023-09-14 15:42 | Emergency (ER) | payer OTHER ==
[2023-09-14 15:59] VITALS: BP 128/73; PULSE 61; RESP 18; TEMP 98; BMI 22.7
[2023-09-14] MEDS: INSULIN (NOVOLOG) ASPART 100 UNITS/ML 10ML VIAL SQ ONE (16:31)
== END 2023-09-14 16:40 | disposition home or self-care (01) ==
LOC: JER 15:42
PROC: 3E013VG Introduction of Insulin into Subcutaneous Tissue, Percutaneous Approach (ICD-10-PCS; principal; 2023-09-14)
DX: E11.65 Type 2 diabetes mellitus with hyperglycemia (principal); Z79.4 Long term (current) use of insulin
CPT/HCPCS: 82962; 99284-25

== ENCOUNTER 2023-10-04 18:52 | Emergency (ER) | payer OTHER ==
[2023-10-04 19:37] VITALS: BP 125/78; PULSE 96; RESP 16; TEMP 98.1; BMI 22.7
[2023-10-04] MEDS: ALBUTEROL SO4 2.5/IPRATROPIUM 0.5 INH SOL 3 ML VIAL.NEB. NEB SCH (20:02)
== END 2023-10-04 20:05 | disposition left against medical advice (07) ==
LOC: JER 18:52
DX: E11.65 Type 2 diabetes mellitus with hyperglycemia (principal); R20.2 Paresthesia of skin; R53.1 Weakness
CPT/HCPCS: 82962; 99283-25

== ENCOUNTER 2023-11-28 15:40 | Inpatient (IN) | payer OTHER ==
[2023-11-28 17:21] VITALS: BMI 21.9
[2023-11-28] MEDS ORDERED: BISMUTH SUBSALICYLATE 524 MG/30 ML PO PRN (17:39)
[2023-11-28] MEDS ORDERED: BENZONATATE 200 MG CAPSULE PO PRN (17:39)
[2023-11-28] MEDS ORDERED: MAGNESIUM HYDROX 2400MG/30ML ORAL SUSPENSION 30 ML CUP PO PRN (17:39)
[2023-11-28] MEDS ORDERED: MAG HYDROX/AL HYDROX/SIMETH 30 ML UNIT-DOSE CUP PO PRN (17:39)
[2023-11-28] MEDS ORDERED: IBUPROFEN 600 MG TABLET (FP) PO PRN (17:39)
[2023-11-28] MEDS ORDERED: NICOTINE POLACRILEX 2 MG GUM BUC PRN (17:39)
[2023-11-28] MEDS ORDERED: ACETAMINOPHEN 325 MG TABLET (FP) PO PRN (17:39)
[2023-11-28] MEDS ORDERED: BENZOCAINE/MENTHOL (CHLORASEPTIC ) LOZENGE MM PRN (17:39)
[2023-11-28] MEDS ORDERED: NICOTINE POLACRILEX 2 MG LOZENGE BC PRN (17:39)
[2023-11-28] MEDS ORDERED: DICYCLOMINE HCL 10 MG CAPSULE PO PRN (17:39)
[2023-11-28] MEDS ORDERED: guaiFENesin 600 MG TABLET.ER (FP) PO PRN (17:39)
[2023-11-28] MEDS ORDERED: ONDANSETRON *ODT* 4 MG TABLET SL PRN (17:39)
[2023-11-28] MEDS ORDERED: METHOCARBAMOL 500 MG TABLET PO PRN (17:39)
[2023-11-28] MEDS ORDERED: LOPERAMIDE HCL 2 MG CAPSULE PO PRN (17:39)
[2023-11-28] MEDS ORDERED: POLYETHYLENE GLYCOL (HEALTHYLAX) 3350 17 GM PACKET PO PRN (17:39)
[2023-11-28] MEDS ORDERED: IBUPROFEN 400 MG TABLET (FP) PO PRN (17:39)
[2023-11-28] MEDS ORDERED: INSULIN ASPART SLIDING SCALE (NOVOLOG) 1 VIAL SQ SCH (17:45)
[2023-11-28] MEDS: INSULIN ASPART SLIDING SCALE (NOVOLOG) 1 VIAL SQ SCH (19:35)
[2023-11-28] MEDS: INSULIN (NOVOLOG) ASPART 100 UNITS/ML 10ML VIAL SQ ONE (19:45)
[2023-11-28] MEDS: THIAMINE 100 MG TABLET PO SCH (21:53)
[2023-11-28] MEDS: MELATONIN 5 MG TABLETS PO SCH (21:53)
[2023-11-29 06:36] VITALS: PULSE 79
[2023-11-29 09:03] VITALS: BP 135/84; RESP 16; TEMP 98.4
[2023-11-29] MEDS: PRENATAL VITAMINS W/ FOLIC ACID TABLET (FP) PO SCH (09:36)
[2023-11-29] MEDS ORDERED: INSULIN (LEVEMIR) 100 UNITS/ML UNITS SQ SCH (22:00)
== END 2023-11-29 15:04 | disposition home or self-care (01) | DRG 775 ==
LOC: YASAS 15:40 → Y3N 20:06
PROVIDERS: ADMIT Allergy & Immunology; ATTEND Surgery
PROC: HZ2ZZZZ Detoxification Services for Substance Abuse Treatment (ICD-10-PCS; principal; 2023-11-28)
DX: F10.220 Alcohol dependence with intoxication, uncomplicated (principal); F10.20 Alcohol dependence, uncomplicated; F17.210 Nicotine dependence, cigarettes, uncomplicated; G47.00 Insomnia, unspecified; I10 Essential (primary) hypertension; E11.9 Type 2 diabetes mellitus without complications; Z79.4 Long term (current) use of insulin; Z87.09 Personal history of other diseases of the respiratory system; Z86.73 Personal history of transient ischemic attack (TIA), and cerebral infarction without residual deficits
CPT/HCPCS: 80305; 80307; 82962

== ENCOUNTER 2024-01-16 14:49 | Inpatient (IN) | payer OTHER ==
[2024-01-16 15:04] VITALS: BMI 24.2
[2024-01-16] MEDS ORDERED: ONDANSETRON 4 MG/2 ML VIAL ONE ×2 (16:15→18:25)
[2024-01-16] MEDS ORDERED: morphine SULFATE 4 MG/ML VIAL ONE ×2 (16:15→18:25)
[2024-01-16] MEDS: morphine CARPU-JECT 4 MG/1 ML DISP.SYRIN IVPUSH ONE ×2 (16:27→18:35)
[2024-01-16] MEDS: ONDANSETRON 4 MG/2 ML VIAL IVPUSH ONE ×2 (16:27→18:35)
[2024-01-16] MEDS: SODIUM CHLORIDE 0.9% 500 ML INFUS.BAG IV ONE ×2 (16:28→18:35)
[2024-01-16 16:38] LABS: BASO % 0.9 % (0-2.0); EOS % 0.7 % (0-4.5); HEMATOCRIT 45.1 % (35.4-49); LYMPH % 19.9 % (8-40); MCHC 35.4 g/dl (32.0-35.9); MEAN PLT VOLUME 7.4 fl (7.5-11.1); MONO % 8.7 % (3.8-10.2); NEUT % 69.8 % (42.8-82.8); PLATELET COUNT 339 10^3/uL (134-434); RDW 12.8 % (11.9-15.9); WHITE BLOOD COUNT 8.1 K/mm3 (4.0-10.0)
[2024-01-16 16:59] LABS: CHLORIDE 99 mmol/L (98-107); POTASSIUM 5.8 mmol/L (3.5-5.1); SODIUM 135 mmol/L (136-145)
[2024-01-16 17:01] LABS: CALCIUM 10.2 mg/dL (8.5-10.1)
[2024-01-16 17:02] LABS: ALBUMIN 4.5 g/dl (3.4-5.0); ANION GAP 10 mmol/L (4-13); CO2 26 mmol/L (21-32)
[2024-01-16 17:03] LABS: BLOOD UREA NITROGEN 12.2 mg/dL (7-18); GLUCOSE,RANDOM 163 mg/dL (74-106)
[2024-01-16 17:05] LABS: CREATININE 0.9 mg/dL (0.55-1.3); SGOT/AST 140 U/L (15-37); SGPT/ALT 98 U/L (13-61)
[2024-01-16 17:06] LABS: CHOLESTEROL 238 mg/dL (50-200); TOT PROT 7.9 g/dl (6.4-8.2)
[2024-01-16 17:07] LABS: LDL CHOLESTEROL (ONLY SJRH) 87 mg/dL (5-100)
[2024-01-16 17:08] LABS: BILIRUBIN,TOTAL 0.9 mg/dL (0.2-1); HDL CHOLESTEROL > 150 mg/dL (40-60)
[2024-01-16 17:09] LABS: ALK PHOS 226 U/L (45-117)
[2024-01-16] MEDS ORDERED: FAMOTIDINE 20 MG/50 ML IVPB 20 MG/50 ML MG IVPB ONE (17:17)
[2024-01-16] MEDS: FAMOTIDINE 20 MG/50 ML IVPB 20 MG/50 ML MG IVPB ONE (17:23)
[2024-01-16 17:31] LABS: EPI CELLS 19 /uL (0-25.1); HYALINE CASTS 1 /uL (0-3.1); PH,URINE >= 9.0 (5.0-8.0); URINE APPEARANCE CLEAR; URINE BACTERIA 133 /uL (0-1359); URINE BILIRUBIN NEGATIVE (NEGATIVE); URINE COLOR YELLOW; URINE GLUCOSE (UA) TRACE (NEGATIVE); URINE KETONE 1+ (NEGATIVE); URINE LEUK ESTERASE TRACE (NEGATIVE); URINE NITRITE NEGATIVE (NEGATIVE); URINE PROTEIN 3+ (NEGATIVE); URINE RBC 17 /uL (0-23.9); URINE WBC 21 /uL (0-25.8)
[2024-01-16] MEDS ORDERED: KETOROLAC TROMETHAMINE 15 MG/ML VIAL ONE (20:06)
[2024-01-16] MEDS: KETOROLAC TROMETHAMINE 15 MG/ML VIAL IVPUSH PRN (20:08)
[2024-01-16] MEDS: LACTATED RINGERS SOLUTION 1,000 ML/1,000 ML INFUS.BAG IV SCH (20:34)
[2024-01-16] MEDS ORDERED: LORazepam 1 MG TABLET ONE (22:19)
[2024-01-16] MEDS ORDERED: HEPARIN NA (PORCINE) 5,000 UNITS/ML 1ML VIAL ONE (22:20)
[2024-01-16] MEDS: HEPARIN NA (PORCINE) 5,000 UNITS/ML 1ML VIAL SQ SCH (22:26)
[2024-01-16] MEDS: LORazepam 1 MG TABLET PO SCH (22:26)
[2024-01-16] MEDS ORDERED: MORPHINE SULFATE 2 MG/ML SYRINGE ONE (22:41)
[2024-01-17] MEDS: IBUPROFEN 600 MG TABLET (FP) PO ONE (00:22)
[2024-01-17] MEDS: INSULIN ASPART SLIDING SCALE (NOVOLOG) 1 VIAL SQ SCH ×3 (06:04→17:14)
[2024-01-17 07:55] LABS: BASO % 0.9 % (0-2.0); EOS % 1.1 % (0-4.5); HEMATOCRIT 43.9 % (35.4-49); HEMOGLOBIN 15.2 GM/dL (11.7-16.9); LYMPH % 17.1 % (8-40); MCH 34.1 pg (25.7-33.7); MCHC 34.5 g/dl (32.0-35.9); MEAN CELL VOLUME 98.7 fl (80-96); MEAN PLT VOLUME 7.5 fl (7.5-11.1); MONO % 9.2 % (3.8-10.2); NEUT % 71.7 % (42.8-82.8); PLATELET COUNT 234 10^3/uL (134-434); RBC 4.44 M/mm3 (4.00-5.60); RDW 12.4 % (11.9-15.9); WHITE BLOOD COUNT 5.5 K/mm3 (4.0-10.0)
[2024-01-17 08:17] LABS: CALCIUM 8.9 mg/dL (8.5-10.1)
[2024-01-17 08:18] LABS: BLOOD UREA NITROGEN 7.3 mg/dL (7-18)
[2024-01-17 08:21] LABS: CREATININE 0.5 mg/dL (0.55-1.3)
[2024-01-17] MEDS ORDERED: LORazepam 1 MG TABLET PO PRN (10:11)
[2024-01-17 10:33] LABS: MAGNESIUM 1.7 mg/dL (1.8-2.4)
[2024-01-17 10:34] LABS: ALBUMIN 3.6 g/dl (3.4-5.0)
[2024-01-17 10:36] LABS: BILIRUBIN,DIRECT 0.3 mg/dL (0.0-0.2)
[2024-01-17 10:37] LABS: PHOSPHOROUS 3.1 mg/dL (2.5-4.9)
[2024-01-17 10:38] LABS: BILIRUBIN,TOTAL 0.8 mg/dL (0.2-1)
[2024-01-17 10:39] LABS: TOT PROT 6.4 g/dl (6.4-8.2)
[2024-01-17 11:13] LABS: INR 0.9 (0.83-1.09); PROTHROMBIN TIME (PATIENT) 10.4 SEC (9.7-13.0)
[2024-01-17] MEDS: ONDANSETRON 4 MG/2 ML VIAL IVPUSH PRN (11:24)
[2024-01-17] MEDS: THIAMINE HCL 200 MG/2 ML VIAL IVPB ONE (11:55)
[2024-01-17] MEDS: ACETAMINOPHEN 500 MG TABLET (FP) PO PRN (15:09)
[2024-01-17] MEDS: LORazepam 1 MG TABLET PO SCH (16:57)
[2024-01-17] MEDS: LISINOPRIL 10 MG TABLET PO SCH (16:59)
[2024-01-17] MEDS: MAGNESIUM SULFATE IN WATER 2 GM/50 ML IVPB IVPB ONE (20:42)
[2024-01-17] MEDS: LACTATED RINGERS SOLUTION 1,000 ML/1,000 ML INFUS.BAG IV SCH (20:54)
[2024-01-18 07:46] LABS: HEMATOCRIT 43.6 % (35.4-49); HEMOGLOBIN 14.8 GM/dL (11.7-16.9); MCH 33.9 pg (25.7-33.7); MEAN CELL VOLUME 99.6 fl (80-96); MEAN PLT VOLUME 7.8 fl (7.5-11.1); PLATELET COUNT 217 10^3/uL (134-434); RBC 4.38 M/mm3 (4.00-5.60); RDW 12.5 % (11.9-15.9); WHITE BLOOD COUNT 4.1 K/mm3 (4.0-10.0)
[2024-01-18 07:54] LABS: POTASSIUM 4.5 mmol/L (3.5-5.1)
[2024-01-18 07:56] LABS: ALBUMIN 3.2 g/dl (3.4-5.0); BLOOD UREA NITROGEN 7.7 mg/dL (7-18); CALCIUM 8.5 mg/dL (8.5-10.1); MAGNESIUM 1.7 mg/dL (1.8-2.4)
[2024-01-18 07:59] LABS: CREATININE 0.5 mg/dL (0.55-1.3)
[2024-01-18 08:00] LABS: PHOSPHOROUS 2.8 mg/dL (2.5-4.9)
[2024-01-18 08:01] LABS: BILIRUBIN,TOTAL 0.8 mg/dL (0.2-1)
[2024-01-18] MEDS: THIAMINE 100 MG TABLET PO SCH (09:27)
[2024-01-18] MEDS: MAGNESIUM SULF 50% (8.12 MEQ/2 ML-1 GM VIAL) IVPB ONE (11:32)
[2024-01-19] MEDS: LORazepam 1 MG TABLET PO SCH (05:56)
[2024-01-19 07:42] LABS: HEMATOCRIT 42.3 % (35.4-49); HEMOGLOBIN 14.3 GM/dL (11.7-16.9); MCH 33.6 pg (25.7-33.7); MCHC 33.8 g/dl (32.0-35.9); MEAN CELL VOLUME 99.3 fl (80-96); MEAN PLT VOLUME 7.9 fl (7.5-11.1); PLATELET COUNT 208 10^3/uL (134-434); RBC 4.26 M/mm3 (4.00-5.60); WHITE BLOOD COUNT 2.9 K/mm3 (4.0-10.0)
[2024-01-19] MEDS: ACETAMINOPHEN 1000 MG/100 ML BAG IVPB PRN (07:48)
[2024-01-19] MEDS: INSULIN (LEVEMIR) 100 UNITS/ML UNITS SQ SCH (07:49)
[2024-01-19 07:53] LABS: POTASSIUM 4.4 mmol/L (3.5-5.1)
[2024-01-19 07:57] LABS: CALCIUM 8.7 mg/dL (8.5-10.1)
[2024-01-19 07:58] LABS: BLOOD UREA NITROGEN 10.1 mg/dL (7-18); MAGNESIUM 1.7 mg/dL (1.8-2.4)
[2024-01-19 08:01] LABS: CREATININE 0.6 mg/dL (0.55-1.3); PHOSPHOROUS 2.8 mg/dL (2.5-4.9)
[2024-01-19 08:02] LABS: BILIRUBIN,TOTAL 0.7 mg/dL (0.2-1); TOT PROT 5.6 g/dl (6.4-8.2)
[2024-01-19] MEDS: ASPIRIN COATED 81 MG TABLET.EC PO SCH (09:40)
[2024-01-19 11:16] VITALS: BP 124/86; PULSE 75; RESP 16; TEMP 98.8
[2024-01-20] MEDS ORDERED: LORazepam 0.5 MG TABLET PO PRN
[2024-01-20] MEDS ORDERED: LORazepam 0.5 MG TABLET PO SCH (05:00)
[2024-01-21] MEDS ORDERED: LORazepam 0.5 MG TABLET PO ONE (05:00)
== END 2024-01-19 11:35 | disposition left against medical advice (07) | DRG 282 ==
LOC: JER 14:49 → JERBED 17:43 → J4W 23:51
PROVIDERS: ADMIT Internal Medicine; ATTEND Internal Medicine
DX: K85.20 Alcohol induced acute pancreatitis without necrosis or infection (principal); I47.10 Supraventricular tachycardia, unspecified; E11.9 Type 2 diabetes mellitus without complications; F10.239 Alcohol dependence with withdrawal, unspecified; F17.210 Nicotine dependence, cigarettes, uncomplicated; R11.2 Nausea with vomiting, unspecified; R74.01 Elevation of levels of liver transaminase levels; K76.0 Fatty (change of) liver, not elsewhere classified
CPT/HCPCS: 36415; 74177-TC; 76705-TC; 80048; 80053; 80061; 80076; 81003; 82962; 83036; 83690; 83735; 84100; 85025; 85027; 85610; 86705; 87086; 87340; 87517; 87902; 93005; 93010; 99285-25; J0131; J1644; Q9967

== ENCOUNTER 2024-02-07 10:03 | Emergency (ER) | payer OTHER ==
[2024-02-07 10:12] VITALS: BMI 24.2
[2024-02-07] MEDS: LACTATED RINGERS SOLUTION 1000 ML INFUS.BAG IV ONE (11:28)
[2024-02-07 11:29] LABS: VENOUS BASE EXCESS -1.7 mmol/L (-2-2); VENOUS O2 SATURATION 70.1 % (70-80); VENOUS PCO2 53.3 mmHg (38-52); VENOUS PH 7.3 (7.310-7.410)
[2024-02-07 11:33] LABS: BASO % 2.9 % (0-2.0); EOS % 5.7 % (0-4.5); HEMATOCRIT 42.8 % (35.4-49); HEMOGLOBIN 14.4 GM/dL (11.7-16.9); LYMPH % 43.2 % (8-40); MCH 33.7 pg (25.7-33.7); MCHC 33.7 g/dl (32.0-35.9); MEAN CELL VOLUME 99.8 fl (80-96); MEAN PLT VOLUME 7.1 fl (7.5-11.1); MONO % 8.1 % (3.8-10.2); NEUT % 40.1 % (42.8-82.8); PLATELET COUNT 234 10^3/uL (134-434); RBC 4.29 M/mm3 (4.00-5.60); RDW 12.6 % (11.9-15.9); WHITE BLOOD COUNT 3.5 K/mm3 (4.0-10.0)
[2024-02-07 11:56] LABS: CHLORIDE 106 mmol/L (98-107); POTASSIUM 4.2 mmol/L (3.5-5.1); SODIUM 141 mmol/L (136-145)
[2024-02-07 11:58] LABS: ALBUMIN 3.8 g/dl (3.4-5.0); ANION GAP 11 mmol/L (4-13); BLOOD UREA NITROGEN 8.1 mg/dL (7-18); CALCIUM 8.7 mg/dL (8.5-10.1); CO2 24 mmol/L (21-32)
[2024-02-07 11:59] LABS: GLUCOSE,RANDOM 410 mg/dL (74-106)
[2024-02-07 12:01] LABS: CREATININE 0.7 mg/dL (0.55-1.3); SGOT/AST 74 U/L (15-37); SGPT/ALT 46 U/L (13-61)
[2024-02-07 12:03] LABS: BILIRUBIN,TOTAL 0.3 mg/dL (0.2-1); TOT PROT 6.8 g/dl (6.4-8.2)
[2024-02-07 12:04] LABS: ALK PHOS 172 U/L (45-117)
[2024-02-07 14:56] VITALS: BP 109/86; PULSE 76; RESP 19; TEMP 97.9
== END 2024-02-07 14:58 | disposition home or self-care (01) ==
LOC: JER 10:03
DX: F10.929 Alcohol use, unspecified with intoxication, unspecified (principal); E11.9 Type 2 diabetes mellitus without complications; Y90.9 Presence of alcohol in blood, level not specified; Z20.822 Contact with and (suspected) exposure to COVID-19
CPT/HCPCS: 0241U-QW; 36415; 71046-TC-FY; 80053; 82010; 82803; 82962; 83690; 83735; 84484; 85025; 93005; 93010; 99285-25

== ENCOUNTER 2024-03-10 04:16 | Day surgery (SDC) | payer OTHER ==
[2024-03-06 15:56] VITALS: BMI 25.8
[2024-03-10] MEDS ORDERED: PROPOFOL 20 ML ONE (14:46)
[2024-03-10] MEDS ORDERED: MIDAZOLAM HCL 2 MG/2 ML SINGLE DOSE VIAL ONE (14:46)
[2024-03-10] MEDS: ceFAZolin SODIUM 1 GM VIAL IVPB ONE (15:10)
[2024-03-10] MEDS: LIDOCAINE HCL 1%, 10 MG/ML (20ML VIAL) ID ONE ×4 (15:13)
[2024-03-10] MEDS: BUPIVACAINE HCL/PF 0.5% (5MG/ML) 10 ML VIAL IJ ONE ×3 (15:13)
[2024-03-10] MEDS: LACTATED RINGERS SOLUTION 1,000 ML IV SCH (16:00)
[2024-03-10] MEDS ORDERED: BACITRACIN ZINC 15 GM TUBE TOPICAL OINTMENT ONE (16:01)
[2024-03-10] MEDS ORDERED: oxyCODONE HCL 5 MG TABLET PO PRN (16:01)
[2024-03-10] MEDS ORDERED: ONDANSETRON 4 MG/2 ML VIAL IVPUSH PRN (16:01)
[2024-03-10 17:19] VITALS: RESP 16; TEMP 97.8
[2024-03-10 17:54] VITALS: BP 146/80; PULSE 68
== END 2024-03-10 18:08 | disposition home or self-care (01) ==
LOC: JASU-SURG 04:16
PROVIDERS: ATTEND Urology
PROC: 0VTTXZZ Resection of Prepuce, External Approach (ICD-10-PCS; principal; 2024-03-10 14:00)
DX: N47.1 Phimosis (principal)
CPT/HCPCS: 82962; 88304-TC; 94760

== ENCOUNTER 2024-08-20 20:09 | Emergency (ER) | payer OTHER ==
[2024-08-20 20:21] VITALS: BP 139/97; PULSE 106; RESP 20; TEMP 98.4; BMI 27.3
[2024-08-20] MEDS ORDERED: IBUPROFEN 400 MG TABLET (FP) PO ONE (21:50)
[2024-08-20] MEDS ORDERED: RABIES VACCINE (PCEC)/PF 2.5 UNIT/VIAL IM ONE (21:52)
[2024-08-20] MEDS: RABIES IMMUNE GLOBULIN 300 UNITS/1 ML VIAL IM ONE (22:29)
[2024-08-20] MEDS: RABIES VACCINE (PCEC)/PF 2.5 UNIT/VIAL IM ONE (22:30)
[2024-08-20] MEDS: DIPHTH,PERTUSS(ACELL),TET 0.5 ML DISP.SYRIN IM ONE (22:32)
[2024-08-20] MEDS: IBUPROFEN 400 MG TABLET (FP) PO ONE (22:34)
== END 2024-08-20 23:15 | disposition home or self-care (01) ==
LOC: JERFT 20:09
PROC: 3E0234Z Introduction of Serum, Toxoid and Vaccine into Muscle, Percutaneous Approach (ICD-10-PCS; principal; 2024-08-20)
PROC: 3E0234Z Introduction of Serum, Toxoid and Vaccine into Muscle, Percutaneous Approach (ICD-10-PCS; 2024-08-20)
DX: S61.252A Open bite of right middle finger without damage to nail, initial encounter (principal); Z23 Encounter for immunization; W54.0XXA Bitten by dog, initial encounter
CPT/HCPCS: 90375; 90471; 90675; 90715; 99284-25

== ENCOUNTER 2024-09-09 18:09 | Inpatient (IN) | payer OTHER ==
[2024-09-09] MEDS ORDERED: morphine SULFATE 4 MG/ML VIAL ONE ×2 (18:47→20:19)
[2024-09-09] MEDS: morphine CARPU-JECT 4 MG/1 ML DISP.SYRIN IVPUSH ONE ×2 (19:08→20:24)
[2024-09-09] MEDS: LACTATED RINGERS SOLUTION 1000 ML INFUS.BAG IV ONE ×2 (19:08→20:24)
[2024-09-09 19:36] LABS: ABSOLUTE IMMATURE GRANULOCYTES 0.01 x10^3/uL (0.0-0.031); BASOPHILS # 0.08 x10^3/uL (0.01-0.08); EOSINOPHIL % 2.1 % (0.8-7.0); HEMATOCRIT 44.1 % (40.1-51.0); HEMOGLOBIN 15.2 g/dL (13.7-17.5); MCHC 34.5 g/dl (32.3-36.5); MEAN CELL VOLUME 93.6 fl (79.0-92.2); MEAN PLT VOLUME 9.3 fl (9.4-12.4); MONOCYTE # 0.44 x10^3/uL (0.30-0.82); MONOCYTE % 9.4 % (5.3-12.2); PLATELET COUNT 222 x10^3/uL (163-337); RDW 11.3 % (12.0-15.6)
[2024-09-09 19:43] LABS: EPI CELLS 4 /uL (0-25.1); HYALINE CASTS 0 /uL (0-3.1); URINE APPEARANCE CLEAR; URINE BACTERIA 2 /uL (0-1359); URINE BILIRUBIN NEGATIVE (NEGATIVE); URINE COLOR YELLOW; URINE GLUCOSE (UA) 1+ (NEGATIVE); URINE KETONE TRACE (NEGATIVE); URINE LEUK ESTERASE NEGATIVE (NEGATIVE); URINE NITRITE NEGATIVE (NEGATIVE); URINE PROTEIN 3+ (NEGATIVE); URINE RBC 79 /uL (0-23.9); URINE WBC 3 /uL (0-25.8)
[2024-09-09 19:56] LABS: POTASSIUM 3.6 mmol/L (3.5-5.1)
[2024-09-09 19:58] LABS: ALBUMIN 4.3 g/dl (3.4-5.0); CALCIUM 9.7 mg/dL (8.5-10.1)
[2024-09-09 19:59] LABS: BLOOD UREA NITROGEN 4.8 mg/dL (7-18)
[2024-09-09 20:02] LABS: CREATININE 0.7 mg/dL (0.55-1.3)
[2024-09-09 20:03] LABS: BILIRUBIN,TOTAL 0.9 mg/dL (0.2-1); TOT PROT 7.9 g/dl (6.4-8.2)
[2024-09-09] MEDS ORDERED: ONDANSETRON 4 MG/2 ML VIAL ONE (20:45)
[2024-09-09] MEDS: ONDANSETRON 4 MG/2 ML VIAL IVPUSH ONE (20:47)
[2024-09-09] MEDS ORDERED: MORPHINE SULFATE 2 MG/ML SYRINGE ONE (21:06)
[2024-09-09] MEDS: MORPHINE SULFATE 2 MG/ML SYRINGE IVPUSH ONE (21:46)
[2024-09-09] MEDS: LORazepam 1 MG TABLET PO SCH ×2 (22:01→23:17)
[2024-09-09] MEDS ORDERED: LORazepam 2 MG/ML SDV VIAL ONE (23:12)
[2024-09-09] MEDS: LORazepam 2 MG/ML SDV VIAL IVPUSH ONE (23:17)
[2024-09-10] MEDS: morphine SULFATE 4 MG/ML VIAL IVPUSH PRN (00:59)
[2024-09-10] MEDS: LISINOPRIL 10 MG TABLET PO ONE (00:59)
[2024-09-10] MEDS: LACTATED RINGERS SOLUTION 1,000 ML/1,000 ML INFUS.BAG IV SCH (01:01)
[2024-09-10 01:37] VITALS: RESP 18
[2024-09-10] MEDS: KETOROLAC TROMETHAMINE 30 MG/1 ML VIAL IVPUSH PRN (05:27)
[2024-09-10] MEDS: INSULIN ASPART SLIDING SCALE (NOVOLOG) 1 VIAL SQ SCH ×2 (05:46→12:20)
[2024-09-10] MEDS ORDERED: EMPAGLIFLOZIN (JARDIANCE) 25 MG TABLET PO SCH (07:00)
[2024-09-10] MEDS ORDERED: INSULIN GLARGINE (LANTUS) 100 UNITS/ML UNITS SQ SCH (07:00)
[2024-09-10 08:00] LABS: HEMATOCRIT 42.8 % (40.1-51.0); HEMOGLOBIN 15.1 g/dL (13.7-17.5); MCHC 35.3 g/dl (32.3-36.5); MEAN CELL VOLUME 92.4 fl (79.0-92.2); MEAN PLT VOLUME 9.7 fl (9.4-12.4); PLATELET COUNT 202 x10^3/uL (163-337)
[2024-09-10 08:06] LABS: POTASSIUM 3.3 mmol/L (3.5-5.1)
[2024-09-10 08:12] LABS: ALBUMIN 3.5 g/dl (3.4-5.0); BLOOD UREA NITROGEN 3.9 mg/dL (7-18); CALCIUM 8.8 mg/dL (8.5-10.1)
[2024-09-10 08:13] LABS: MAGNESIUM 1.3 mg/dL (1.8-2.4)
[2024-09-10 08:14] LABS: PHOSPHOROUS 3.6 mg/dL (2.5-4.9)
[2024-09-10 08:15] LABS: BILIRUBIN,TOTAL 1.4 mg/dL (0.2-1)
[2024-09-10 08:16] LABS: CREATININE 0.6 mg/dL (0.55-1.3); TOT PROT 6.3 g/dl (6.4-8.2)
[2024-09-10 08:28] LABS: CHOLESTEROL 187 mg/dL (50-200)
[2024-09-10 08:29] LABS: LDL CHOLESTEROL (ONLY SJRH) 55 mg/dL (5-100)
[2024-09-10 08:31] LABS: HDL CHOLESTEROL 123 mg/dL (40-60)
[2024-09-10] MEDS: POTASSIUM CHLORIDE ORAL LIQUID 20 MEQ/15 ML PO ONE (09:49)
[2024-09-10] MEDS: ENOXAPARIN NA (PORCINE) 40 MG/0.4 ML DISP.SYRIN SQ SCH (09:49)
[2024-09-10] MEDS: FOLIC ACID 1 MG TABLET (FP) PO SCH (09:50)
[2024-09-10] MEDS: MULTIVITAMINS THER W-MINERALS COMBO TABLET (FP) PO SCH (09:50)
[2024-09-10] MEDS: THIAMINE 100 MG TABLET PO SCH (09:50)
[2024-09-10] MEDS: MAGNESIUM SULFATE IN WATER 2 GM/50 ML IVPB IVPB ONE (09:50)
[2024-09-10] MEDS ORDERED: LISINOPRIL 10 MG TABLET PO SCH (10:00)
[2024-09-10] MEDS ORDERED: amLODIPine BESYLATE 5 MG TABLET (FP) PO SCH (14:45)
[2024-09-10] MEDS: LISINOPRIL 10 MG TABLET PO SCH (15:32)
[2024-09-10 16:09] VITALS: BMI 27.5
[2024-09-11] MEDS: LORazepam 1 MG TABLET PO PRN (04:03)
[2024-09-11 04:17] VITALS: BP 137/95; PULSE 69; TEMP 98.6
[2024-09-11] MEDS ORDERED: LORazepam 1 MG TABLET PO SCH (05:00)
[2024-09-12] MEDS ORDERED: LORazepam 0.5 MG TABLET PO PRN
[2024-09-12] MEDS ORDERED: LORazepam 0.5 MG TABLET PO SCH (05:00)
[2024-09-13] MEDS ORDERED: LORazepam 0.5 MG TABLET PO ONE (05:00)
== END 2024-09-11 05:05 | disposition left against medical advice (07) | DRG 282 ==
LOC: JER 18:09 → JERBED 20:04 → J7W 09-10 00:13 → OBSVTOIN 09-10 15:26 → J8W 09-10 19:28
PROVIDERS: ADMIT Hospitalist; ATTEND Physician Assistant
PROC: HZ2ZZZZ Detoxification Services for Substance Abuse Treatment (ICD-10-PCS; principal; 2024-09-09)
DX: K85.20 Alcohol induced acute pancreatitis without necrosis or infection (principal); I10 Essential (primary) hypertension; E11.9 Type 2 diabetes mellitus without complications; J45.909 Unspecified asthma, uncomplicated; E87.6 Hypokalemia; E83.42 Hypomagnesemia; F10.139 Alcohol abuse with withdrawal, unspecified; F41.9 Anxiety disorder, unspecified; E78.5 Hyperlipidemia, unspecified; K65.4 Sclerosing mesenteritis; K76.0 Fatty (change of) liver, not elsewhere classified; F31.9 Bipolar disorder, unspecified; K86.1 Other chronic pancreatitis
CPT/HCPCS: 36415; 74177-TC; 76705-TC; 80053; 80061; 81003; 82962; 83036; 83690; 83735; 84100; 85025; 85027; 87086; 93005; 93010; 99285-25; G0378; Q9967